=== PATIENT | male | born 1975 | race Caucasian/White ===

== ENCOUNTER 2019-04-16 08:00 | Inpatient (IN) | payer OTHER ==
[2019-04-16 08:55] VITALS: BMI 27.7
[2019-04-16] MEDS ORDERED: MIDAZOLAM HCL 2 MG/2 ML SINGLE DOSE VIAL ONE ×2 (09:25)
[2019-04-16] MEDS ORDERED: PROPOFOL 20 ML ONE ×6 (09:26→11:54)
[2019-04-16] MEDS ORDERED: MORPHINE 5 MG/10 ML AMP - FOR COMPOUNDING USE ONLY ONE (09:44)
[2019-04-16] MEDS ORDERED: fentaNYL CITRATE 250 MCG/5 ML VIAL ONE (09:49)
[2019-04-16] MEDS ORDERED: ROCURONIUM BROMIDE 50 MG/5 ML SYRINGE ONE (09:50)
[2019-04-16] MEDS ORDERED: DEXMEDETOMIDINE HCL 200 MCG/2 ML IVPB ONE (09:56)
[2019-04-16] MEDS ORDERED: BUPIVACAINE LIPOSOME/PF (EXPAREL) 266 MG/20 ML VIAL ONE (10:07)
[2019-04-16] MEDS ORDERED: BUPIVACAINE HCL/PF 0.5% (5 MG/ML) 30 ML VIAL IJ ONE (10:08)
[2019-04-16] MEDS ORDERED: KETAMINE HCL 200 MG/20 ML VIAL ONE (10:18)
[2019-04-16] MEDS ORDERED: ceFAZolin SODIUM 1 GM VIAL IVPB ONE ×2 (10:30→12:35)
[2019-04-16] MEDS ORDERED: TRANEXAMIC ACID 1000 MG/10 ML VIAL ONE (10:59)
[2019-04-16] MEDS ORDERED: GELATIN SPONGE,ABSORBABLE 1 GM PACKET TP ONE (11:21)
[2019-04-16] MEDS ORDERED: BUPIVACAINE LIPOSOME/PF (EXPAREL) 266 MG/20 ML VIAL NR ONE (12:59)
[2019-04-16] MEDS ORDERED: BUPIVACAINE HCL/PF 0.5% (5MG/ML) 10 ML VIAL IJ ONE (12:59)
[2019-04-16] MEDS ORDERED: ONDANSETRON 4 MG/2 ML VIAL ONE (13:17)
[2019-04-16] MEDS ORDERED: DEXAMETHASONE SOD PHOSPHATE 4 MG/1 ML VIAL ONE (13:17)
[2019-04-16] MEDS ORDERED: ceFAZolin SODIUM 1 GM VIAL ONE (13:17)
--- NOTE | 2019-04-16 13:27 | PN ---
Progress Note (short form) - Note Progress Note: 43M s/p L4-S1 posterior instrumented fusion POD #0. -Admit to ICU post-op. -Pain control: NO NSAID's; patient received intra-op TLIP block w/Exparel; OK to use WATCHER LOOKOUT TOWER if needed; transition to oral analgesia post-op. -DVT PPx: -Mechanical only: GLORY's, SCD's. -Chemical: None. -Incentive spirometry q15 min. -NPO until flatus. -Brooks care; d/c when ambulating. -Post-op Ancef x 3 doses. -PT/OT/Rehab, OOB. -WBAT B/L LE. -No bending, lifting (>5 lbs), or twisting for 9-12 months. -Care per ICU & medical hospitalist teams. -f/u pain management rec's: Dr. Vladimir Wright (case discussed). -Discharge planning: f/u 7-10 days after [facility]; call for appointment; . -Will follow. Dhaval Berger MD (Orthopaedic Surgery).
--- NOTE | 2019-04-16 13:32 | OP ---
Operative Note - Note: Operative Date: 04/16/19 Pre-Operative Diagnosis: 1. L4-L5, L5-S1 segmental instability & spondylosis. 2. L5-S1 spondylolisthesis (Grade 1 anterolisthesis). 3. Pseudomeningocele ~L5 Operation: 1. Bilateral laminectomies & facetectomies L4, S1. 2. Revision bilateral laminectomies & facetectomies L5. 3. Posterior instrumentation L4, L5 , S1. 4. Posterolateral arthrodesis L4-S1. 5. Bone autograft. 6. Bone allograft. 7. BMAC. 8. Paraspinal muscle block (exparel - 20mL, marcaine 0.25 % - 20mL). 9. Intrathecal anesthetic/intradural injection - duramorph. 10. Complex wound closure (25cm). Findings: L5 meningocele Implants: Bilateral: Screws L4-S1. Rods L4-S1. 1 x cross-link Post-Operative Diagnosis: Same as Pre-op Surgeon: Dhaval Berger Graphic Design Intern: Johnathon Berrios Anesthesiologist/CONCRETE BUSTER OPERATOR: Elke Tinoco Anesthesia: General, Local Estimated Blood Loss (mls): 190 Drains & Tubes with Location: 1 x superficial HemoVac Fluid Volume Replaced (mls): 1,700 (Crystalloid) Operative Report Dictated: Yes
[2019-04-16] MEDS ORDERED: NALOXONE HCL 0.4 MG/ML VIAL IVPUSH PRN (13:37)
[2019-04-16] MEDS ORDERED: ONDANSETRON 4 MG/2 ML VIAL IVPUSH PRN ×3 (13:37→13:38)
[2019-04-16] MEDS ORDERED: morphine SULFATE/PF 0.5 MG/ML (2cc Syringe - QUVA) IT ONE (13:37)
[2019-04-16] MEDS ORDERED: LACTATED RINGERS SOLUTION 1,000 ML IV SCH (13:45)
--- NOTE | 2019-04-16 14:09 | SURG ---
Surgery Bucket Pusher Note Bucket Pusher: Johnathon Berrios PA-C Date of Service: 04/16/19 Diagnosis: 1. L4-L5, L5-S1 segmental instability & spondylosis. 2. L5-S1 spondylolisthesis (Grade 1 anterolisthesis). 3. Pseudomeningocele ~L5 Procedure: 1. Bilateral laminectomies & facetectomies L4, S1. 2. Revision bilateral laminectomies & facetectomies L5. 3. Posterior instrumentation L4, L5, S1. 4. Posterolateral arthrodesis L4-S1. 5. Bone autograft. 6. Bone allograft. 7. BMAC. 8. Paraspinal muscle block (exparel - 20mL, marcaine 0.25% - 20mL). 9. Intrathecal anesthetic/intradural injection - duramorph. 10. Complex wound closure (25cm). I was present for the entirety of the operative procedure. For further detail, please refer to operative report. Visit type - Case Type Case Type: Scheduled - New patient This patient is new to me today: Yes Date on this admission: 04/16/19
[2019-04-16] MEDS ORDERED: ACETAMINOPHEN 1000 MG/100 ML VIAL (NON FORMULARY) IVPB ONE (14:28)
[2019-04-16] MEDS ORDERED: HYDROmorphone HCl 2 MG/ML VIAL ONE ×2 (14:35→15:01)
[2019-04-16] MEDS ORDERED: HYDROmorphone HCl 2 MG/ML VIAL IVPUSH ONE ×5 (14:36→15:12)
--- NOTE | 2019-04-16 15:10 | OP ---
Date of Operation: 04/16/2019 Pre-Operative Diagnosis: 1. L4-L5, L5-S1 segmental instability & spondylosis 2. L5-S1 Spondylolisthesis (Grade 1 anterolisthesis) 3. Pseudomeningocele L5 4. Chronic low back pain Post-Operative Diagnosis: 1. L4-L5, L5-S1 segmental instability & spondylosis 2. L5-S1 Spondylolisthesis (Grade 1 anterolisthesis) 3. Pseudomeningocele L5 4. Chronic low back pain Procedure Performed: 1. L4, L5, S1 laminectomies and facetectomies. (95490-68, 24407-00 x 2) 2. Posterolateral arthrodesis L4-S1. (76787-34-45, 92779-71-85 x 2) 3. L4-S1 posterior instrumentation. (74443-55-59) 4. Morselized bone autograft. (05304) 5. Morselized bone allograft. (31866) 6. Bone marrow aspiration for bone grafting. (26941) 7. Paraspinal muscle block (exparel - 20mL, marcaine 0.25% - 20mL). (95542) 8. Intrathecal anesthetic/intradural injection - duramorph. (70757) 9. Complex wound closure, 4 layers, 25cm. (30190 x 4) Surgeon: Dhaval Berger M.D. Fabrics And Material Cutter: Johnathon Berrios PA-C. Anesthesiologist: Elke Tinoco M.D. Anesthesia: General, Local. Position: Prone. Incision: Midline. Specimens Removed: None. Drains: 1 x superficial HemoVac. Estimated Blood Loss: 190cc. Intravenous Fluid: 1700cc crystalloid. Transfusions: None. Complications: None. Bacteriology: None. Closure: No. 1 Vicryl, 2-0 Biosyn absorbable sutures. Indications: The patient was indicated for the above listed surgical procedure due to progressive functional decline that limits his mobility and furthermore his ability to attend to his activities of daily living. The patient was identified in the holding area by his armband. A long discussion was held with the patient regarding the risks, benefits, and alternatives of the above-listed procedure. The risks include, but are not limited to: Pain, bleeding, infection, damage to surrounding structures (including nerves, blood vessels, skin, ligaments, tendons, and bone), wound complications, failure of hardware/implants/reduction , need for further surgery, blood clots, myocardial infarction, cerebrovascular injury, pulmonary embolism, anesthesia complications, limp, numbness, paresthesias, loss of function, and . Benefits may include reduction of: back pain, radiculopathy, neurogenic claudication, and improved overall mobility and function. Alternatives include no surgery. All questions were answered. The patient understood and agreed to the procedure. Informed consent was obtained, witnessed, and verified. The patient's lumbar spine was marked. He was then assessed by the anesthesia team and then taken to the operating room. Procedure: The patient was brought into the operating room, where anesthesia was then administered. This included 2g IV Ancef, 1g IV Vancomycin, and 1g IV tranexamic acid (TXA). A time-out was done led by , the attending surgeon. An indwelling Brooks catheter was successfully inserted by the nursing team. The intra-operative neuromonitoring team provided prepositioning baseline motor and sensory readings. The patient was then safely placed in a prone position with all bony prominences well-padded on a [facility] OSI spine table with strict attention paid to maintenance of sagittal vertical alignment. Retroversion of the pelvis was avoided by ensuring that the hips were extended. This also ensured appropriate lumbar lordosis. The arms were placed on well-padded arm boards and maintained with standard forward flexion, abduction, and external rotation of the shoulders , and flexion of the elbows. Special attention was given to the safe positioning of the cervical spine. The patients eyes, breasts, and belly were all free. The table was placed in 6 degrees of reverse Trendelenburg position to avoid ophthalmic vein congestion. Post-positional motor and sensory readings confirmed no change. A C-arm fluoroscopy unit was positioned perpendicularly to the table and maintained at the level of the upper thoracic spine, except when needed. The skin was prepped in standard, sterile fashion using betadine prep & scrub, wiped off with alcohol, and DuraPrep applied. Standard window draping was utilized, and this included draping of the C-arm. Appropriate pre-operative imaging, including lumbar spine x-rays, CT, and MRI, were available throughout the case for intraoperative evaluation. Verification of the intended surgical levels was confirmed with a lateral fluoroscopic x-ray using a Montiel elevator for localization. A time-out was repeated, and the case began. A midline skin incision was performed from the tip of the spinous process of L3 to the tip of the spinous process of S2. Using electrocautery, the dissection was carried down through subcutaneous fat and then through the midline of the lumbodorsal fascia down to the tips of the spinous processes. A subperiosteal dissection was performed using a combination of unipolar electrocautery and Montiel elevation. This was carried down the spinous process, over the laminae, across the facet joints, and out over the tips of the transverse processes from L4 to S1. In this dissection, the capsules of the L3-L4 joints were preserved bilaterally. The L4-L5 and L5- S1 joint capsules were pathologically hypertrophic. They were ablated using electrocautery and resected with rongeurs. The posterolateral dissection was performed with attention to hemostatis by utilizing both unipolar as well as bipolar electrocautery. The posterolateral space was packed with Ray-Deandre sponges. A rongeur was used to grasp the L5 spinous process and demonstrate the last mobile segment. A rongeur was used to grasp the L4 spinous processes and demonstrate the mobility of the L4-L5 segments. The bilateral L4, L5, and S1 laminae were resected utilizing Kerrison rongeur upcuts combined with Leksell rongeurs. This completed the L4-S1 laminectomies. All harvested bone was saved, freed of fibrous tissue, and milled with a bone mill. Next, an osteotome was utilized to longitudinally split the pars interarticularis and the inferior facets of L4, and L5 bilaterally. The osteotomized bone was imploded towards the thecal sac, which was protected with cottonoid patties, and removed with either a Leksell rongeur or a Kerrison ronguer. Upon removal of all osteotomized bone, we gained clear and easy access to the superior facets of L5, and S1, where tight recess stenosis was appreciated. The exiting L4, L5, & S1 nerve roots were identified and protected. The medial edge of the superior facets was resected at each level bilaterally using Kerrison rongeurs. This freed the theca and the exiting nerve roots at each level. The foraminae, bilaterally, at L4-L5, and L5-S1 were inspected utilizing an angled ball-tipped probe and proved to be generously capacious in accommodating the unobstructed exit of the nerve root at that level. The crowding of the convoluted ligamentum flavum and posterior facet joint capsules contributed to the recess stenosis. These structures were excised using Kerrison upcuts, thus fully completing the decompression. All retractors were relaxed and removed. A Jamshidi needle was delivered into the left posterior ileum through the same surgical incision. Via this, 60 mL of bone marrow was aspirated and spun down to isolate a mix of osteoprogenitor and hematopoietic cells. Retractors were inserted once again. At this point, the neuromonitoring revealed no complications. Pedicle screws were then seated bilaterally from L4-S1 utilizing standard anatomical guidelines: IE the intersection of the horizontal axis of the transverse process with the longitudinal axis of the inferior facet at each level. Utilizing lateral fluoroscopic x-ray, a 4.5mm pneumatic drill was passed via the pedicle at each level, into the corresponding vertebral body. Imaging allowed us to ensure that the drill screw was delivered along the undersurface of each endplate. This was the best quality bone fixation at each level. Each pedicle was palpated with a ball tip feeler. No breech of anterior, medial , lateral, caudal or cranial bone bed was noted. Each screw was reevaluated with lateral and anteroposterior fluoroscopy as well as intraoperative neuromonitoring. All intraoperative neuromonitoring readings were at or above the safe passage of 10 mA. The L4 and L5 pedicles were inspected and palpated using an angled ball-tipped probe. There was no evidence of screw breach involving any of the pedicles. Next, two rods were inserted and fixed into the screw heads with the appropriate screw caps. A torque-limiting device completed the fixation of each cap into each screw head. A single crosslink was utilized. The muscle was gently retracted off the intertransverse plane. All packing sponges were removed. Milled/morselized autologous bone, with morselized allograft bone expansion, was combined with the bone marrow aspiration and used for the posterolateral arthrodesis along the intertransverse plane from L4 to S1. The recipient bone bed was denuded of all soft tissue. No burring was necessary due to healthy bleeding of each bony surface, including the posterior surface of the transverse processes and the lateral surface of the pars interarticularis at each level. This completed the posterolateral arthrodesis. Throughout the case, the wound was irrigated with normal saline solution to keep the exposed soft tissues hydrated. The retractors were released every 15 to 20 minutes to enable adequate blood flow to the paraspinal muscles. These muscles were gently massaged upon release of the retractors to further facilitate blood flow. At the end of the procedure, fragmented and compromised paraspinal muscle was superficially debrided. The dura was inspected and was completely intact. Closure: The paraspinal muscles and lumbodorsal fascia overlying the paraspinal musculature was closed in the midline using #1 Vicryl sutures in simple interrupted fashion. Due to excellent hemostasis, no drain was utilized. The wound was repeatedly thoroughly irrigated with normal saline solution. The subcutaneous tissues were closed using #1 Vicryl sutures. The skin was closed using a running 2-0 Biosyn absorbable suture. This completed a complex, 4-layered wound closure of approximately 25cm. The skin was then painted with benzoin and Steri-Strips were applied perpendicular to the incision. A Primapore adhesive Telfa island dressing was applied over the Steri-Strips and a sterile, compressive dressing was applied using 4x4 gauze pads. The skin was painted with DuraPrep. The wound was then sealed with adhesive Ioban. Final AP & lateral fluoroscopic analysis revealed L4-S1 instrumentation that was intact & in place. There was no fluoroscopic evidence of retained sponges or needles. The sponge and needle counts were correct at the end of the case and I, the attending surgeon, was present and scrubbed throughout the case. The patient was transferred to a hospital bed. All neural monitoring leads were removed. The patient was then transferred to the recovery room in stable condition, as per the anesthesia team, having tolerated the procedure well. Overall comment: Operation went extremely well with no complications. All appropriate goals were achieved in the execution of this operative event. MD JAIME Resendez/[id number] MTDD
[2019-04-16] MEDS ORDERED: diazePAM 5 MG TABLET ONE (15:38)
[2019-04-16] MEDS ORDERED: diazePAM 5 MG TABLET PO ONE ×2 (15:40→19:12)
[2019-04-16] MEDS ORDERED: HYDROmorphone *PCA* 10MG/50ML DISP.SYRIN PCA SCH (16:00)
[2019-04-16] MEDS ORDERED: HYDROmorphone HCL CARPU-JECT 2 MG/1 ML DISP.SYRIN IVPUSH PRN (19:13)
[2019-04-16] MEDS ORDERED: oxyCODONE HCL 5 MG TABLET ONE (19:36)
[2019-04-16] MEDS ORDERED: oxyCODONE HCL 5 MG TABLET PO ONE (19:40)
[2019-04-16] MEDS: LACTATED RINGERS SOLUTION 1,000 ML IV SCH (20:30)
[2019-04-16] MEDS ORDERED: ALPRAZolam 1 MG TABLET PO PRN (22:00)
[2019-04-16] MEDS: GABAPENTIN 300 MG CAPSULE (FP) PO SCH (22:21)
--- NOTE | 2019-04-16 22:28 | CONSULT ---
Consultation: REQUESTING PROVIDER: CONSULT REQUEST: We have been asked to medically evaluate this patient for ICU monitoring post operatively. HISTORY OF PRESENT ILLNESS: 43 y/o/m with PMHx of arachnoiditis, asthma, ADD, Bipolar disorder here s/p L4- S1 posterior instrumented fusion POD #0. 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 He is able to walk a few blocks if he has taken his pain medication but then starts to have pain again. His pain is better when he is lying down and worse when sitting. The pain is worse in his right leg compared to his left leg. Post-op, patient states his pain is reasonably well controlled. His back is uncomfortable due to the surgery but states he will let the nurse know if he needs more pain medications. He denies any headache, chest pain, SOB, abd pain, N/V/D, fever, chills. Procedures performed today: 1. Bilateral laminectomies & facetectomies L4, S1. 2. Revision bilateral laminectomies & facetectomies L5. 3. Posterior instrumentation L4, L5, S1. 4. Posterolateral arthrodesis L4-S1. 5. Bone autograft. 6. Bone allograft. 7. BMAC. 8. Paraspinal muscle block (exparel - 20mL, marcaine 0.25% - 20mL). 9. Intrathecal anesthetic/intradural injection - duramorph. 10. Complex wound closure (25cm). REVIEW OF SYSTEMS: As per HPI PHYSICAL EXAMINATION Vital Signs - 24 hr 04/16/19 04/16/19 04/16/19 08:48 13:52 14:00 Temperature 84 F L 98.1 F Pulse Rate 84 86 90 Respiratory 20 12 13 Rate Blood Pressure 136/83 126/66 136/77 O2 Sat by Pulse 98 94 L Oximetry (%) 04/16/19 04/16/19 04/16/19 14:15 14:30 14:45 Temperature Pulse Rate 92 H 87 79 Respiratory 25 H 18 25 H Rate Blood Pressure 126/67 132/73 128/68 O2 Sat by Pulse 98 100 100 Oximetry (%) 04/16/19 04/16/19 04/16/19 15:00 15:15 15:30 Temperature Pulse Rate 75 73 79 Respiratory 19 15 12 Rate Blood Pressure 111/61 115/67 118/59 L O2 Sat by Pulse 100 99 92 L Oximetry (%) 04/16/19 04/16/19 04/16/19 15:45 16:00 16:15 Temperature Pulse Rate 82 78 81 Respiratory 20 12 12 Rate Blood Pressure 111/63 118/81 113/64 O2 Sat by Pulse 94 L 95 94 L Oximetry (%) 04/16/19 04/16/19 04/16/19 16:30 16:45 17:00 Temperature Pulse Rate 83 75 77 Respiratory 12 10 10 Rate Blood Pressure 124/69 126/66 122/62 O2 Sat by Pulse 93 L 96 97 Oximetry (%) 04/16/19 04/16/19 04/16/19 17:15 17:30 17:45 Temperature Pulse Rate 81 82 72 Respiratory 13 12 10 Rate Blood Pressure 116/63 133/67 129/76 O2 Sat by Pulse 100 98 98 Oximetry (%) 04/16/19 04/16/19 04/16/19 18:00 18:15 18:30 Temperature 98.7 F Pulse Rate 80 85 73 Respiratory 11 16 10 Rate Blood Pressure 121/73 111/56 L 116/66 O2 Sat by Pulse 100 100 98 Oximetry (%) 04/16/19 04/16/19 04/16/19 18:45 19:00 19:15 Temperature Pulse Rate 77 78 78 Respiratory 12 10 16 Rate Blood Pressure 116/71 123/69 123/63 O2 Sat by Pulse 99 99 98 Oximetry (%) 04/16/19 04/16/19 04/16/19 19:30 19:45 20:00 Temperature Pulse Rate 79 77 75 Respiratory 10 10 10 Rate Blood Pressure 131/75 133/69 135/66 O2 Sat by Pulse 99 99 98 Oximetry (%) 04/16/19 04/16/19 04/16/19 20:15 20:30 21:00 Temperature 99.0 F 96.3 F L Pulse Rate 80 73 79 Respiratory 11 10 14 Rate Blood Pressure 127/67 131/67 133/76 O2 Sat by Pulse 99 99 99 Oximetry (%) GENERAL: Awake, alert, and fully oriented, in no acute distress. HEAD: Normal with no signs of trauma. EYES: PERRL, EOMI, no scleral icterus EARS, NOSE, THROAT: moist mucous membranes NECK: trachea midline, supple LUNGS: Breath sounds equal, clear to auscultation bilaterally. No wheezes, and no crackles. No accessory muscle use. HEART: Regular rate and rhythm, normal S1 and S2 without murmur, rub or gallop. ABDOMEN: Soft, nontender, not distended, normoactive bowel sounds, no guarding, no rebound, no masses EXTREMITIES: 2+ pulses, warm, well-perfused. No calf tenderness. No peripheral edema. NEUROLOGICAL: Cranial nerves II-XII intact. Normal speech. Normal sensation throughout. 5/5 strength on pedal flexion, extension. Laboratory Results - last 24 hr 04/16/19 04/16/19 08:12 08:53 Blood Type O POSITIVE O POSITIVE Antibody Screen Negative Active Medications Generic Name Dose Route Start Last Admin Trade Name Freq PRN Reason Stop Dose Admin Acetaminophen 1,000 mg 04/16/19 18:00 Ofirmev Injection - IVPB 04/19/19 17:59 Q8H MAXIMO Acetaminophen 650 mg 04/20/19 02:00 Tylenol - PO Q6H MAXIMO Alprazolam 1 mg 04/16/19 13:45 Xanax PO PRN MAXIMO Diphenhydramine HCl 25 mg 04/16/19 13:37 Benadryl Injection - IVPUSH ONCE PRN FOR ITCHING Fentanyl 50 mcg 04/16/19 13:37 Sublimaze Injection - IVPUSH 04/17/19 01:00 [id number] PRN PAIN-PACU ORDER X 4 DOSES ONLY Gabapentin 300 mg 04/16/19 14:00 Neurontin - PO QID [facility] Hydromorphone HCl 10 mg 04/16/19 16:00 Hydromorphone 10 Mg/50 Ml-Ns SUPERVISOR PLASTIC SHEETS 04/23/19 15:48 SUPERVISOR PLASTIC SHEETS [facility] Protocol Lactated Ringer's 1,000 mls @ 125 mls/hr 04/16/19 13:45 Lactated Ringers Solution IV ASDIR [facility] Lamotrigine 800 mg 04/17/19 10:00 Lamictal - PO DAILY [facility] Naloxone HCl 0.4 mg 04/16/19 13:37 Narcan - IVPUSH ONCE PRN Sedation Non-Formulary Medication 40 mg 04/17/19 10:00 Dextroamphetamine/Amphetamine [Adderall 10 Mg Tablet] PO DAILY [facility] Non-Formulary Medication 70 mg 04/17/19 10:00 Lisdexamfetamine Dimesylate [Vyvanse] PO DAILY [facility] Ondansetron HCl 4 mg 04/16/19 13:37 Zofran Injection IVPUSH Q6H PRN NAUSEA AND/OR VOMITING Ondansetron HCl 4 mg 04/16/19 13:38 Zofran Injection IVPUSH Q6H PRN NAUSEA AND/OR VOMITING Oxycodone HCl 10 mg 04/16/19 13:45 Oxycontin - PO PRN MAXIMO Oxycodone HCl 40 mg 04/16/19 13:37 Roxicodone - PO Q3H PRN PAIN LEVEL 6-10 ASSESSMENT/PLAN: 43 y/o/m with PMHx of arachnoiditis, asthma, ADD, Bipolar disorder here s/p L4- S1 posterior instrumented fusion POD #0. #Neuro - AAOx3 - Pain control: NO NSAID's; patient received intra-op TLIP block w/Exparel; OK to use SUPERVISOR PLASTIC SHEETS if needed; transition to oral analgesia post-op. - WBAT B/L LE. - No bending, lifting (>5 lbs), or twisting for 9-12 months. - f/u pain management rec's: Dr. Vladimir Wright (case discussed). - Continue home medications as per surgery - Patient started on 800mg of Lamictal. Adjusted dose to 400mg as patient only takes 400mg at home as confirmed by patient and patient's pharmacy. - PT/OT/Rehab, OOB. #Cardio - Monitor for signs of bradycardia, tachycadia - no active issues #Pulm - maintain O2 saturation >90% - encourage incentive spirometry [id number] #GI - NPO until flatus - Bowel sounds auscultated on exam #ID - Post-op Ancef x3 doses #Prophylaxis - Mechanical only: GLORY's, SCD's. - Chemical: None. #FEN - LR @125mls hr - monitor and replete lytes as needed #Disposition - ICU monitoring - Discharge planning: f/u 7-10 days after rehab discharge at [facility] office; call for appointment; . Visit type - Emergency Visit Emergency Visit: No - New Patient This patient is new to me today: Yes Date on this admission: 04/17/19 - Critical Care Critical Care patient: Yes Total Critical Care Time (in minutes): 36 Critical Care Statement: The care of this patient involved high complexity decision making to prevent further life threatening deterioration of the patient 's condition and/or to evaluate & treat vital organ system(s) failure or risk of failure. ATTENDING PHYSICIAN STATEMENT I saw and evaluated the patient. I reviewed the resident's note and discussed the case with the resident. I agree with the resident's findings and plan as documented. SUBJECTIVE: OBJECTIVE: ASSESSMENT AND PLAN:
[2019-04-17] MEDS: oxyCODONE HCL 5 MG TABLET PO PRN ×8 (01:50→23:55)
[2019-04-17] MEDS: ACETAMINOPHEN 1000 MG/100 ML VIAL (NON FORMULARY) IVPB SCH ×4 (02:00→16:59)
[2019-04-17] MEDS: LACTATED RINGERS SOLUTION 1,000 ML IV SCH ×2 (04:23→14:31)
[2019-04-17] MEDS: GABAPENTIN 300 MG CAPSULE (FP) PO SCH ×5 (04:24→21:26)
[2019-04-17 07:00] LABS: HEMATOCRIT 37.2 % (35.4-49); HEMOGLOBIN 12.9 GM/dL (11.7-16.9); MCHC 34.8 g/dl (32.0-35.9); MEAN CELL VOLUME 86.1 fl (80-96); MEAN PLT VOLUME 9.3 fl (7.5-11.1); PLATELET COUNT 251 K/MM3 (134-434); RBC 4.32 M/mm3 (4.00-5.60); RDW 13.3 % (11.9-15.9); WHITE BLOOD COUNT 11.7 K/mm3 (4.0-10.0)
[2019-04-17 07:48] LABS: BLOOD UREA NITROGEN 15.6 mg/dL (7-18); CALCIUM 8.8 mg/dL (8.5-10.1); CREATININE 0.8 mg/dL (0.55-1.3); POTASSIUM 4.2 mmol/L (3.5-5.1)
--- NOTE | 2019-04-17 08:09 | HP ---
Pre-Op diagnosis: 1. L4-L5, L5-S1 segmental instability & spondylosis. 2. L5-S1 spondylolisthesis (Grade 1 anterolisthesis). 3. Pseudomeningocele ~L5 HISTORY OF PRESENT ILLNESS: Pt is a 43 y/o/m with PMHx of arachnoiditis, asthma, ADD, Bipolar disorder who is s/p L4-S1 posterior instrumented fusion POD #1. Pt endorses having undergone previous back surgery in 2005 where a schwannoma tumor was removed from his spinal cord at the L4-L5 level. Pt states he developed arachnoiditis after this surgery. Pt currently endorses severe back pain. Pain is less severe when patient is lying down and is exacerbated when his is in a siting position. Denies headache, nausea/vomiting, fever, chills, urinary or bowel changes, chest pain, or shortness of breath PAST MEDICAL HISTORY As above PAST SURGICAL HISTORY: Schwanomma removal 2006 spinal cord SocialHx- Remote history of Tobacco and alcohol use. Allergies adhesive tape Allergy (Severe, Verified 04/16/19 08:57) pollen extracts Allergy (Verified 04/16/19 08:57) HOME MEDICATIONS: Home Medications Medication Instructions Recorded Alprazolam [Xanax] 1 mg PO PRN 04/16/19 Cyclobenzaprine HCl [Flexeril -] 10 mg PO DAILY 04/16/19 Dextroamphetamine/Amphetamine 40 mg PO DAILY 04/16/19 [Adderall 10 mg Tablet] Diazepam [Valium] 10 mg PO DAILY 04/16/19 Gabapentin [Neurontin] 300 mg PO QID 04/16/19 Lamotrigine [Lamictal -] 800 mg PO DAILY 04/16/19 Lisdexamfetamine Dimesylate 70 mg PO DAILY 04/16/19 [Vyvanse] Oxycodone HCl [Oxycontin] 10 mg PO PRN 04/16/19 Tadalafil [Cialis] 5 mg PO PRN 04/16/19 REVIEW OF SYSTEMS CONSTITUTIONAL: Absent: fever, chills, diaphoresis, generalized weakness, malaise, loss of appetite, weight change HEENT: Absent: rhinorrhea, nasal congestion, throat pain, throat swelling, difficulty swallowing, mouth swelling, ear pain, eye pain, visual changes CARDIOVASCULAR: Absent: chest pain, syncope, palpitations, irregular heart rate, lightheadedness , peripheral edema RESPIRATORY: Absent: cough, shortness of breath, dyspnea with exertion, orthopnea, wheezing, stridor, hemoptysis GASTROINTESTINAL: Absent: abdominal pain, abdominal distension, nausea, vomiting, diarrhea, constipation, melena, hematochezia GENITOURINARY: Absent: dysuria, frequency, urgency, hesitancy, hematuria, flank pain, genital pain MUSCULOSKELETAL: Absent: myalgia, arthralgia, joint swelling, back pain, neck pain SKIN: Absent: rash, itching, pallor HEMATOLOGIC/IMMUNOLOGIC: Absent: easy bleeding, easy bruising, lymphadenopathy, frequent infections ENDOCRINE: Absent: unexplained weight gain, unexplained weight loss, heat intolerance, cold intolerance NEUROLOGIC: present paresthesias right lower extremities PSYCHIATRIC: Absent: anxiety, depression, suicidal or homicidal ideation, hallucinations. PHYSICAL EXAMINATION Vital Signs - 24 hr 04/16/19 04/16/19 04/16/19 08:48 13:52 14:00 Temperature 84 F L 98.1 F Pulse Rate 84 86 90 Respiratory 20 12 13 Rate Blood Pressure 136/83 126/66 136/77 O2 Sat by Pulse 98 94 L Oximetry (%) 04/16/19 04/16/19 04/16/19 14:15 14:30 14:45 Temperature Pulse Rate 92 H 87 79 Respiratory 25 H 18 25 H Rate Blood Pressure 126/67 132/73 128/68 O2 Sat by Pulse 98 100 100 Oximetry (%) 04/16/19 04/16/19 04/16/19 15:00 15:15 15:30 Temperature Pulse Rate 75 73 79 Respiratory 19 15 12 Rate Blood Pressure 111/61 115/67 118/59 L O2 Sat by Pulse 100 99 92 L Oximetry (%) 04/16/19 04/16/19 04/16/19 15:45 16:00 16:15 Temperature Pulse Rate 82 78 81 Respiratory 20 12 12 Rate Blood Pressure 111/63 118/81 113/64 O2 Sat by Pulse 94 L 95 94 L Oximetry (%) 04/16/19 04/16/19 04/16/19 16:30 16:45 17:00 Temperature Pulse Rate 83 75 77 Respiratory 12 10 10 Rate Blood Pressure 124/69 126/66 122/62 O2 Sat by Pulse 93 L 96 97 Oximetry (%) 04/16/19 04/16/19 04/16/19 17:15 17:30 17:45 Temperature Pulse Rate 81 82 72 Respiratory 13 12 10 Rate Blood Pressure 116/63 133/67 129/76 O2 Sat by Pulse 100 98 98 Oximetry (%) 04/16/19 04/16/19 04/16/19 18:00 18:15 18:30 Temperature 98.7 F Pulse Rate 80 85 73 Respiratory 11 16 10 Rate Blood Pressure 121/73 111/56 L 116/66 O2 Sat by Pulse 100 100 98 Oximetry (%) 04/16/19 04/16/19 04/16/19 18:45 19:00 19:15 Temperature Pulse Rate 77 78 78 Respiratory 12 10 16 Rate Blood Pressure 116/71 123/69 123/63 O2 Sat by Pulse 99 99 98 Oximetry (%) 04/16/19 04/16/19 04/16/19 19:30 19:45 20:00 Temperature Pulse Rate 79 77 75 Respiratory 10 10 10 Rate Blood Pressure 131/75 133/69 135/66 O2 Sat by Pulse 99 99 98 Oximetry (%) 04/16/19 04/16/19 04/16/19 20:15 20:30 21:00 Temperature 99.0 F Pulse Rate 80 73 Respiratory 11 10 Rate Blood Pressure 127/67 131/67 O2 Sat by Pulse 99 99 99 Oximetry (%) 04/16/19 04/16/19 04/16/19 21:30 22:00 23:00 Temperature 96.3 F L Pulse Rate 79 71 83 Respiratory 14 9 L 10 Rate Blood Pressure 133/76 118/81 120/64 O2 Sat by Pulse Oximetry (%) 04/17/19 04/17/19 04/17/19 01:00 02:00 03:00 Temperature Pulse Rate 80 72 73 Respiratory 14 14 10 Rate Blood Pressure 113/60 121/102 H 117/74 O2 Sat by Pulse Oximetry (%) 04/17/19 04/17/19 04/17/19 04:00 05:00 06:00 Temperature 98.0 F Pulse Rate 86 82 79 Respiratory 12 10 15 Rate Blood Pressure 115/71 123/75 101/60 O2 Sat by Pulse Oximetry (%) GENERAL: Mild distress HEAD: Normal with no signs of trauma. EYES: EOMI Sclera Clear EARS, NOSE, THROAT: MMM LUNGS: Clear to auscultation anteriorly HEART: RRR S1S2 ABDOMEN: Soft, NDNT BACK: HemoVac Drain in back, Serosanguinous fluid draining. UPPER EXTREMITIES: Strength 5/5 biceps and triceps. Hand identity management consultant 5/5 both hands. LOWER EXTREMITIES: Strength 4/5 bilaterally. SILT. NEUROLOGICAL: Cranial nerves II-XII intact. Normal speech. PSYCHIATRIC: Cooperative. Good eye contact. Appropriate mood and affect. SKIN: Warm, dry, normal turgor, no rashes or lesions noted, normal capillary refill. Laboratory Results - last 24 hr 04/16/19 04/16/19 04/17/19 08:12 08:53 05:35 WBC 11.7 H RBC 4.32 Hgb 12.9 Hct 37.2 MCV 86.1 MCH 30.0 MCHC 34.8 RDW 13.3 Plt Count 251 MPV 9.3 Sodium Potassium Chloride Carbon Dioxide Anion Gap BUN Creatinine Est GFR (CKD-EPI)AfAm Est GFR (CKD-EPI)NonAf Random Glucose Calcium Blood Type O POSITIVE O POSITIVE Antibody Screen Negative 04/17/19 05:35 WBC RBC Hgb Hct MCV MCH MCHC RDW Plt Count MPV Sodium 139 Potassium 4.2 Chloride 106 Carbon Dioxide 30 Anion Gap 3 L BUN 15.6 Creatinine 0.8 Est GFR (CKD-EPI)AfAm 127.70 Est GFR (CKD-EPI)NonAf 110.18 Random Glucose 93 Calcium 8.8 Blood Type Antibody Screen ASSESSMENT/PLAN: Pt is a 43 y/o/m with PMHx of arachnoiditis, asthma, ADD, Bipolar disorder who is s/p L4-S1 posterior instrumented fusion POD #1 S/P 1. Bilateral laminectomies & facetectomies L4, S1. 2. Revision bilateral laminectomies & facetectomies L5. 3. Posterior instrumentation L4, L5, S1. 4. Posterolateral arthrodesis L4-S1. 5. Bone autograft. 6. Bone allograft. 7. BMAC. 8. Paraspinal muscle block (exparel - 20mL, marcaine 0.25% - 20mL). 9. Intrathecal anesthetic/intradural injection - duramorph. 10. Complex wound closure (25cm). # s/p L4-S1 posterior instrumented fusion POD #1 - Pain control: NO NSAID's; patient received intra-op TLIP block w/Exparel -Oxycodone 10 mg PRN with pain scales. Ofirmev 1000 mg Q8H PRN - No bending, lifting (>5 lbs), or twisting for 9-12 months. - f/u pain management rec's: Dr. Vladimir Wright - Continue home medications as per surgery - PT/OT/Rehab, OOB. -Incentive [place] -D/C no when ambulating -Ancef x 3 doses finished #Bipolar Disorder -Resume Lamictal 400 Daily #FEN -LR @125mls hr -Monitor and replete lytes as needed -NPO until flatus #DVT ppx: -SCDs #Dispo - ICU monitoring Visit type - Emergency Visit Emergency Visit: No - New Patient This patient is new to me today: Yes Date on this admission: 04/17/19 - Critical Care Critical Care patient: Yes Total Critical Care Time (in minutes): 35 Critical Care Statement: The care of this patient involved high complexity decision making to prevent further life threatening deterioration of the patient 's condition and/or to evaluate & treat vital organ system(s) failure or risk of failure. ATTENDING PHYSICIAN STATEMENT I saw and evaluated the patient. I reviewed the resident's note and discussed the case with the resident. I agree with the resident's findings and plan as documented. SUBJECTIVE: OBJECTIVE: ASSESSMENT AND PLAN:
[2019-04-17] MEDS ORDERED: PT OWN MED DRAWER 7, Y5N ONE ×2 (08:51→09:48)
[2019-04-17] MEDS ORDERED: PATIENT'S OWN MEDICATION (NON-FORMULARY) (Dextroamphetamine/Amphetamine [Adderall 10 Mg Ta PO SCH (10:00)
[2019-04-17] MEDS ORDERED: LISDEXAMFETAMINE DIMESYLATE 70 MG PO SCH (10:00)
[2019-04-17] MEDS ORDERED: lamoTRIgine 100 MG TABLET (FP) PO SCH ×2 (10:00)
--- NOTE | 2019-04-17 10:55 | PN ---
Progress Note (short form) - Note Progress Note: Anesthesia Post Op Note Pt seen s/p GA for multi level lumbar lami Pt awake alert NAD denies n/v, puritis, no complaints using po pain med regimen VSS no apparent anesthesia complications Darcy Murillo.
--- NOTE | 2019-04-17 11:21 | PN ---
Physical Exam: SUBJECTIVE: Patient seen and examined on morning rounds. Pain well controlled overnight, worsened this AM, 40mg oxy to good effect. Patient denies nausea / vomiting. No flatus yet, endorses hunger. Brooks in place draining clear yellow urine. Patient requesting his 400 lamictal and vivace 70mg. Snoring with desaturation to 89% immediately prior to interview - suggestive of CECILIA. OBJECTIVE: Vital Signs Period Temp Pulse Resp BP Sys/Andrews Pulse Ox Last 24 Hr 96.3 F-99.0 F 71-92 9-25 101-136/56-102 92-100 GENERAL: The patient is awake, alert, and fully oriented, in no acute distress, laying flat in hospital bed. HEAD: Normal with no signs of trauma. EYES: PERRL, extraocular movements intact, sclera anicteric, conjunctiva clear. No ptosis. ENT: Ears normal, nares patent, oropharynx clear without exudates, moist mucous membranes. NECK: Trachea midline, full range of motion, supple. LUNGS: Breath sounds equal, clear to auscultation bilaterally, no wheezes, no crackles, no accessory muscle use. HEART: Regular rate and rhythm, S1, S2 without murmur, rub or gallop. ABDOMEN: Soft, nontender, nondistended, normoactive bowel sounds, no guarding, no rebound, no hepatosplenomegaly, no masses. EXTREMITIES: 2+ pulses, warm, well-perfused, no edema. NEUROLOGICAL: Cranial nerves II through XII grossly intact. Normal speech, gait not observed. PSYCH: Normal mood, normal affect. SKIN: Warm, dry, normal turgor, no rashes or lesions noted Laboratory Results - last 24 hr 04/17/19 04/17/19 05:35 05:35 WBC 11.7 H RBC 4.32 Hgb 12.9 Hct 37.2 MCV 86.1 MCH 30.0 MCHC 34.8 RDW 13.3 Plt Count 251 MPV 9.3 Sodium 139 Potassium 4.2 Chloride 106 Carbon Dioxide 30 Anion Gap 3 L BUN 15.6 Creatinine 0.8 Est GFR (CKD-EPI)AfAm 127.70 Est GFR (CKD-EPI)NonAf 110.18 Random Glucose 93 Calcium 8.8 Active Medications Generic Name Dose Route Start Last Admin Trade Name Freq PRN Reason Stop Dose Admin Acetaminophen 1,000 mg 04/16/19 18:00 04/17/19 09:04 Ofirmev Injection - IVPB 04/19/19 17:59 1,000 mg Q8H MAXIMO Administration Acetaminophen 650 mg 04/20/19 02:00 Tylenol - PO Q6H MAXIMO Alprazolam 1 mg 04/16/19 22:00 Xanax PO HS PRN INSOMNIA Diphenhydramine HCl 25 mg 04/16/19 13:37 Benadryl Injection - IVPUSH ONCE PRN FOR ITCHING Gabapentin 300 mg 04/16/19 14:00 04/17/19 09:04 Neurontin - PO 300 mg QID MAXIMO Administration Lactated Ringer's 1,000 mls @ 125 mls/hr 04/16/19 13:45 04/17/19 04:23 Lactated Ringers Solution IV Not Given ASDIR MAXIMO Lamotrigine 400 mg 04/17/19 10:00 04/17/19 09:54 Lamictal - PO 400 mg DAILY [facility] Administration Naloxone HCl 0.4 mg 04/16/19 13:37 Narcan - IVPUSH ONCE PRN Sedation Non-Formulary Medication 40 mg 04/17/19 10:00 Dextroamphetamine/Amphetamine [Adderall 10 Mg Tablet] PO DAILY [facility] Non-Formulary Medication 70 mg 04/17/19 10:00 Lisdexamfetamine Dimesylate [Vyvanse] PO DAILY [facility] Ondansetron HCl 4 mg 04/16/19 13:37 Zofran Injection IVPUSH Q6H PRN NAUSEA AND/OR VOMITING Ondansetron HCl 4 mg 04/16/19 13:38 Zofran Injection IVPUSH Q6H PRN NAUSEA AND/OR VOMITING Oxycodone HCl 10 mg 04/16/19 22:30 Roxicodone - PO Q4H PRN PAIN LEVEL 1-5 Oxycodone HCl 40 mg 04/16/19 13:37 04/17/19 08:16 Roxicodone - PO 40 mg Q3H PRN Administration PAIN LEVEL 6-10 ASSESSMENT/PLAN: 43 y/o/m with PMHx of arachnoiditis, asthma, ADD, Bipolar disorder here s/p L4- S1 posterior instrumented fusion POD #1. Progressing appropriately postop. #Neuro - AAOx3 - Pain control: NO NSAID's; patient received intra-op TLIP block w/Exparel; OK to use WEATHER ANCHOR if needed; transition to oral analgesia post-op. - WBAT B/L LE. - No bending, lifting (>5 lbs), or twisting for 9-12 months. - f/u pain management rec's: Dr. Vladimir Wright (case discussed). - Continue home medications as per surgery - Patient continued on 400mg lamictal - Patient on home Vyvance 70mg, not available on formulary, controlled substance , since in pill pack and not original bottle, unable to verify through pharmacy - PT/OT/Rehab, OOB. #Cardio - Monitor for signs of bradycardia, tachycadia - No active issues #Pulm - Maintain O2 saturation >90% - Encourage incentive spectrometry [id number] #GI - NPO until flatus - Bowel sounds auscultated on exam #ID - Post-op Ancef x3 doses #Prophylaxis - Mechanical only: GLORY's, SCD's. - Chemical: None. - PT - OOB #FEN - LR @125mls hr - Monitor and replete lytes as needed #Disposition - ICU monitoring, disposition per surgery team, spoke with Dr. Berger - patient stable, agrees to transfer to floor - Discharge planning: f/u 7-10 days after rehab discharge at [facility] office; call for appointment; . Visit type - Emergency Visit Emergency Visit: Yes ED Registration Date: 04/16/19 Care time: The patient presented to the Emergency Department on the above date and was hospitalized for further evaluation of their emergent condition. - New Patient This patient is new to me today: Yes Date on this admission: 04/17/19 - Critical Care Critical Care patient: Yes Total Critical Care Time (in minutes): 36 Critical Care Statement: The care of this patient involved high complexity decision making to prevent further life threatening deterioration of the patient 's condition and/or to evaluate & treat vital organ system(s) failure or risk of failure. ATTENDING PHYSICIAN STATEMENT I saw and evaluated the patient. I reviewed the resident's note and discussed the case with the resident. I agree with the resident's findings and plan as documented. SUBJECTIVE: OBJECTIVE: ASSESSMENT AND PLAN:
--- NOTE | 2019-04-17 11:29 | PN ---
Teaching Attending Note Name of Resident: Destin Childers ATTENDING PHYSICIAN STATEMENT I saw and evaluated the patient. I reviewed the resident's note and discussed the case with the resident. I agree with the resident's findings and plan as documented. SUBJECTIVE: Pt seen and examined in the ICU. Pain relatively controlled. No nausea. No flatus. OBJECTIVE: Vital Signs Period Temp Pulse Resp BP Sys/Andrews Pulse Ox Last 24 Hr 96.3 F-99.0 F 71-92 9-25 101-136/56-102 92-100 Intake & Output 04/14/19 04/15/19 04/16/19 04/17/19 23:59 23:59 23:59 23:59 Intake Total 3200 1160 Output Total 2170 2120 Balance 1030 -960 Weight 87.09 kg 89.3 kg Gen: NAD at rest Heart: RRR Lung: decreased breath sounds at the bases Abd: soft, nontender Ext: no edema CBC, BMP 04/17/19 05:35 04/17/19 05:35 Active Medications Acetaminophen (Ofirmev Injection -) 1,000 mg IVPB Q8H [facility] Stop: 04/19/19 17:59 Last Admin: 04/17/19 09:04 Dose: 1,000 mg Acetaminophen (Tylenol -) 650 mg PO Q6H [facility] Alprazolam (Xanax) 1 mg PO HS PRN PRN Reason: INSOMNIA Diphenhydramine HCl (Benadryl Injection -) 25 mg IVPUSH ONCE PRN PRN Reason: FOR ITCHING Gabapentin (Neurontin -) 300 mg PO QID [facility] Last Admin: 04/17/19 09:04 Dose: 300 mg Lactated Ringer's (Lactated Ringers Solution) 1,000 mls @ 125 mls/hr IV ASDIR [facility] Last Admin: 04/17/19 04:23 Dose: Not Given Lamotrigine (Lamictal -) 400 mg PO DAILY [facility] Last Admin: 04/17/19 09:54 Dose: 400 mg Naloxone HCl (Narcan -) 0.4 mg IVPUSH ONCE PRN PRN Reason: Sedation Non-Formulary Medication (Dextroamphetamine/Amphetamine [Adderall 10 Mg Tablet] ) 40 mg PO DAILY [facility] Non-Formulary Medication (Lisdexamfetamine Dimesylate [Vyvanse]) 70 mg PO DAILY [facility] Ondansetron HCl (Zofran Injection) 4 mg IVPUSH Q6H PRN PRN Reason: NAUSEA AND/OR VOMITING Ondansetron HCl (Zofran Injection) 4 mg IVPUSH Q6H PRN PRN Reason: NAUSEA AND/OR VOMITING Oxycodone HCl (Roxicodone -) 10 mg PO Q4H PRN PRN Reason: PAIN LEVEL 1-5 Oxycodone HCl (Roxicodone -) 40 mg PO Q3H PRN PRN Reason: PAIN LEVEL 6-10 Last Admin: 04/17/19 08:16 Dose: 40 mg ASSESSMENT AND PLAN: L4-L5, L5-S1 segmental instability & spondylosis/L5-S1 spondylolisthesis/ Pseudomeningocele ~L5 s/p Bilateral laminectomies & facetectomies L4, S1/Revision bilateral laminectomies & facetectomies L5/Posterior instrumentation L4, L5, S1 Asthma Bipolar Disorder ADD - pain control - incentive spirometry - IVF - PO when flatus - d/c no when OOB - rehab/PT - DVT prophylaxis - disposition per surgery
--- NOTE | 2019-04-17 12:52 | PN ---
Teaching Attending Note Name of Resident: Sha Beebe ATTENDING PHYSICIAN STATEMENT I saw and evaluated the patient. I reviewed the resident's note and discussed the case with the resident. I agree with the resident's findings and plan as documented. SUBJECTIVE: Pt is a 43yo male with PMHx of asthma, ADD, Bipolar disorder who is s/p L4-S1 posterior instrumented fusion POD #1. Pt endorses having undergone previous back surgery in 2005 where a schwannoma tumor was removed from his spinal cord at the L4-L5 level. Patient is c/o having severe back pain. POD #1 OBJECTIVE: Vital Signs Temperature 98.0 F 04/17/19 05:00 Pulse Rate 81 04/17/19 12:00 Respiratory Rate 16 04/17/19 12:00 Blood Pressure 97/65 04/17/19 12:00 O2 Sat by Pulse Oximetry (%) 99 04/17/19 09:00 GENERAL: The patient is awake, alert, and fully oriented, in no acute distress. HEAD: Normal with no signs of trauma. EYES: PERRL, extraocular movements intact, sclera anicteric, conjunctiva clear. ENT: Ears normal, oropharynx clear without exudates, moist mucous membranes. NECK: Trachea midline, full range of motion, supple. LUNGS: Breath sounds equal, clear to auscultation bilaterally, no wheezes, no crackles, no accessory muscle use. HEART: Regular rate and rhythm, S1, S2 without murmur, rub or gallop. ABDOMEN: Soft, nontender, nondistended, normoactive bowel sounds, no guarding, no rebound, no hepatosplenomegaly, no masses. EXTREMITIES: 2+ pulses, warm, well-perfused, no edema. NEUROLOGICAL: Cranial nerves II through XII grossly intact. Normal speech, gait not observed. PSYCH: Normal mood, normal affect. SKIN: Warm, dry, normal turgor, no rashes or lesions noted CBCD WBC 11.7 K/mm3 (4.0-10.0) H 04/17/19 05:35 RBC 4.32 M/mm3 (4.00-5.60) 04/17/19 05:35 Hgb 12.9 GM/dL (11.7-16.9) 04/17/19 05:35 Hct 37.2 % (35.4-49) 04/17/19 05:35 MCV 86.1 fl (80-96) 04/17/19 05:35 MCHC 34.8 g/dl (32.0-35.9) 04/17/19 05:35 RDW 13.3 % (11.9-15.9) 04/17/19 05:35 Plt Count 251 K/MM3 (134-434) 04/17/19 05:35 MPV 9.3 fl (7.5-11.1) 04/17/19 05:35 CMP Sodium 139 mmol/L (136-145) 04/17/19 05:35 Potassium 4.2 mmol/L (3.5-5.1) 04/17/19 05:35 Chloride 106 mmol/L (98-107) 04/17/19 05:35 Carbon Dioxide 30 mmol/L (21-32) 04/17/19 05:35 Anion Gap 3 MMOL/L (8-16) L 04/17/19 05:35 BUN 15.6 mg/dL (7-18) 04/17/19 05:35 Creatinine 0.8 mg/dL (0.55-1.3) 04/17/19 05:35 Random Glucose 93 mg/dL (74-106) 04/17/19 05:35 Calcium 8.8 mg/dL (8.5-10.1) 04/17/19 05:35 Current Medications Generic Name Dose Route Start Last Admin Trade Name Freq PRN Reason Stop Dose Admin Acetaminophen 1,000 mg 04/16/19 18:00 04/17/19 09:04 Ofirmev Injection - IVPB 04/19/19 17:59 1,000 mg Q8H MAXIMO Administration Acetaminophen 650 mg 04/20/19 02:00 Tylenol - PO Q6H MAXIMO Alprazolam 1 mg 04/16/19 22:00 Xanax PO HS PRN INSOMNIA Diphenhydramine HCl 25 mg 04/16/19 13:37 Benadryl Injection - IVPUSH ONCE PRN FOR ITCHING Gabapentin 300 mg 04/16/19 14:00 04/17/19 09:04 Neurontin - PO 300 mg QID MAXIMO Administration Lactated Ringer's 1,000 mls @ 125 mls/hr 04/16/19 13:45 04/17/19 04:23 Lactated Ringers Solution IV Not Given ASDIR MAXIMO Lamotrigine 400 mg 04/17/19 10:00 04/17/19 09:54 Lamictal - PO 400 mg DAILY [facility] Administration Naloxone HCl 0.4 mg 04/16/19 13:37 Narcan - IVPUSH ONCE PRN Sedation Non-Formulary Medication 40 mg 04/17/19 10:00 Dextroamphetamine/Amphetamine [Adderall 10 Mg Tablet] PO DAILY [facility] Non-Formulary Medication 70 mg 04/17/19 10:00 Lisdexamfetamine Dimesylate [Vyvanse] PO DAILY [facility] Ondansetron HCl 4 mg 04/16/19 13:37 Zofran Injection IVPUSH Q6H PRN NAUSEA AND/OR VOMITING Ondansetron HCl 4 mg 04/16/19 13:38 Zofran Injection IVPUSH Q6H PRN NAUSEA AND/OR VOMITING Oxycodone HCl 10 mg 04/16/19 22:30 Roxicodone - PO Q4H PRN PAIN LEVEL 1-5 Oxycodone HCl 40 mg 04/16/19 13:37 04/17/19 08:16 Roxicodone - PO 40 mg Q3H PRN Administration PAIN LEVEL 6-10 Home Medications Medication Instructions Recorded Alprazolam [Xanax] 1 mg PO PRN 04/16/19 Cyclobenzaprine HCl [Flexeril -] 10 mg PO DAILY 04/16/19 Dextroamphetamine/Amphetamine 40 mg PO DAILY 04/16/19 [Adderall 10 mg Tablet] Diazepam [Valium] 10 mg PO DAILY 04/16/19 Gabapentin [Neurontin] 300 mg PO QID 04/16/19 Lamotrigine [Lamictal -] 800 mg PO DAILY 04/16/19 Lisdexamfetamine Dimesylate 70 mg PO DAILY 04/16/19 [Vyvanse] Oxycodone HCl [Oxycontin] 10 mg PO PRN 04/16/19 Tadalafil [Cialis] 5 mg PO PRN 04/16/19 ASSESSMENT AND PLAN: Patient is a 43yo male with PMHx of asthma, ADD, Bipolar disorder who is POD #1 for L4-S1 posterior instrumented fusion by Dr Berger. Patient of # POD #[address] Berger for L4-L5, L5-S1 segmental instability & spondylosis. 2. L5-S1 spondylolisthesis (Grade 1 anterolisthesis). 3. Pseudomeningocele ~L5 1. Bilateral laminectomies & facetectomies L4, S1. 2. Revision bilateral laminectomies & facetectomies L5. 3. Posterior instrumentation L4, L5, S1. 4. Posterolateral arthrodesis L4-S1. 5. Bone autograft. 6. Bone allograft. 7. BMAC. 8. Paraspinal muscle block (exparel - 20mL, marcaine 0.25% - 20mL). 9. Intrathecal anesthetic/intradural injection - duramorph. 10. Complex wound closure (25cm). - Pain control: NO NSAID's; Oxycodone 10 mg PRN with pain scales. Ofirmev 1000 mg Q8H PRN - No bending, lifting (>5 lbs), or twisting for 9-12 months, pain management : Dr. Vladimir Wright - PT/OT/Rehab, OOB, Angy Mccray D/C oneal when ambulating -Ancef x 3 doses finished #Bipolar Disorder: Resume Lamictal 400 Daily DVT Px; SCd
--- NOTE | 2019-04-17 14:20 | PN ---
Progress Note (short form) - Note Progress Note: Surgery POD#1 1. L4-L5, L5-S1 Bilateral laminectomies & facetectomies L4, S1. 2. Revision bilateral laminectomies & facetectomies L5. 3. Posterior instrumentation L4, L5 , S1. 4. Posterolateral arthrodesis L4-S1. patient seen and examined at bedside complaining he is hungry and would like to eat. His pain is controlled and he has not been OOB yet. Vital Signs Temp 98.0 F 04/17/19 05:00 Pulse 81 04/17/19 12:00 Resp 16 04/17/19 12:00 BP 97/65 04/17/19 12:00 Pulse Ox 99 04/17/19 09:00 Intake & Output 04/16/19 04/17/19 04/17/19 23:59 11:59 23:59 Intake Total 1500 1160 Output Total 1830 2120 Balance -330 -960 Weight 196 lb 13.965 oz Intake: IV 1500 1160 Lactated Ringers Solution 1160 1,000 ml @ 125 mls/hr IV ASDIR MAXIMO Rx#: [id number] Output: Drainage 30 20 Medial Back 20 Urine 1800 2100 Brooks 2100 Other: Voiding Method Indwelling Catheter Indwelling Catheter Bowel Movement No Weight Measurement Method Built in Bedscale CBC, BMP 04/17/19 05:35 04/17/19 05:35 PE: A&Ox3, NAD Unlabored resp on RA Lumbar spine dressing c/d/i with iodoform dressing and hemavac drain in place. Surrounding tissue intact with no evidence of tracking erythema. collection or active d/c. B/L LE compartments soft supple and non-tender with +2 DP pulses and 5/5 dorsi/ plantar flexion. 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 -Chemical: None. -Incentive spirometry q15 min. -Regular diet -Brooks care; d/c when ambulating. -Post-op Ancef x 3 doses. -PT/OT/Rehab, OOB. -WBAT B/L LE. -No bending, lifting (>5 lbs), or twisting for 9-12 months. -Care per ICU & medical hospitalist teams. -f/u pain management rec's: Dr. Vladimir Wright (case discussed). -Discharge planning: f/u 7-10 days after rehab discharge at [facility] office; call for appointment; . Code(s): Z98.890 - OTHER SPECIFIED POSTPROCEDURAL STATES
[2019-04-17] MEDS ORDERED: oxyCODONE HCL 5 MG TABLET PO PRN (22:28)
[2019-04-17] MEDS ORDERED: ONDANSETRON 4 MG/2 ML VIAL IVPUSH PRN (22:28)
[2019-04-17] MEDS ORDERED: NALOXONE HCL 0.4 MG/ML VIAL IVPUSH PRN (22:28)
[2019-04-17] MEDS: ALPRAZolam 1 MG TABLET PO PRN (23:24)
[2019-04-18] MEDS: ACETAMINOPHEN 1000 MG/100 ML VIAL (NON FORMULARY) IVPB SCH ×5 (01:31→18:18)
[2019-04-18] MEDS: oxyCODONE HCL 5 MG TABLET PO PRN ×5 (03:37→23:31)
--- NOTE | 2019-04-18 08:35 | PN ---
Progress Note (short form) - Note Progress Note: ORTHOPAEDIC SPINE SURGERY POD #2 s/p L4-L5, L5-S1 Bilateral lamis & facetectomies L4, S1. 2. Revision bilateral laminectomies & facetectomies L5. 3. Posterior instrumentation L4, L5 , S1. 4. Posterolateral arthrodesis L4-S1. Per RN, patient not compliant. Not willing to get OOB. Demanding he get his home dose of kely medicatons Hasn't been OOB yet. Brooks cath in place. Tolerating PO diet. Denies n/v/f/c, CP, palpitations, sob or CARROLL. Denies motor or sensory deficits. Last Vital Signs Temp Pulse Resp BP Pulse Ox 101.2 F H 103 H 20 137/77 96 04/18/19 07:05 04/18/19 07:05 04/18/19 07:05 04/18/19 07:05 04/17/19 21:00 PE: A&Ox3, NAD Unlabored resp on RA Lumbar spine dressing c/d/i with iodoform dressing and hemavac drain in place. Surrounding tissue intact with no evidence of tracking erythema. collection or active d/c. B/L LE compartments soft supple and non-tender with +2 DP pulses and 5/5 dorsi/ plantar flexion. 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 -Chemical: None. -Incentive spirometry -Regular diet -Brooks care; d/c when ambulating. -PT/OT/Rehab, OOB. -WBAT B/L LE. -No bending, lifting (>5 lbs), or twisting for 9-12 months. -Hemovac dc'd on rounds -Pain Management --> Dr. Vladimir Wright -Discharge planning w/ f/u 7-10 days after discharge --> [facility] [place] office; call for appointment; . Code(s): Z98.890 - OTHER SPECIFIED POSTPROCEDURAL STATES
[2019-04-18 08:45] LABS: BASO % 0.4 % (0-2.0); EOS % 0.9 % (0-4.5); HEMATOCRIT 36.5 % (35.4-49); HEMOGLOBIN 12.6 GM/dL (11.7-16.9); LYMPH % 20.4 % (8-40); MCH 30.1 pg (25.7-33.7); MCHC 34.5 g/dl (32.0-35.9); MEAN CELL VOLUME 87.2 fl (80-96); MEAN PLT VOLUME 9.2 fl (7.5-11.1); MONO % 8.7 % (3.8-10.2); NEUT % 69.6 % (42.8-82.8); PLATELET COUNT 237 K/MM3 (134-434); RBC 4.18 M/mm3 (4.00-5.60); RDW 13.6 % (11.9-15.9); WHITE BLOOD COUNT 9.2 K/mm3 (4.0-10.0)
[2019-04-18 09:13] LABS: ALBUMIN 3.2 g/dl (3.4-5.0); BILIRUBIN,TOTAL 0.3 mg/dL (0.2-1); BLOOD UREA NITROGEN 11.2 mg/dL (7-18); CALCIUM 8.6 mg/dL (8.5-10.1); CREATININE 1.1 mg/dL (0.55-1.3); MAGNESIUM 2.4 mg/dL (1.8-2.4); PHOSPHOROUS 2.6 mg/dL (2.5-4.9); POTASSIUM 3.5 mmol/L (3.5-5.1); TOT PROT 5.8 g/dl (6.4-8.2)
[2019-04-18] MEDS: GABAPENTIN 300 MG CAPSULE (FP) PO SCH ×4 (09:35→21:41)
[2019-04-18] MEDS: lamoTRIgine 100 MG TABLET (FP) PO SCH (09:35)
[2019-04-18] MEDS ORDERED: PATIENT'S OWN MEDICATION (NON-FORMULARY) (Dextroamphetamine/Amphetamine [Adderall 10 Mg Ta PO SCH (10:00)
--- NOTE | 2019-04-18 15:51 | PN ---
Physical Exam: SUBJECTIVE: Patient seen and examined 43 y/o M, pmh of arachnoiditis, asthma, ADD, bipolar presents s/p L4-S1 posterior instrumented fusion POD #2. Pt spiked a fever overnight and was given tylenol IV, which relieved the fever. Pt is no longer febrile and has no c/o. He passed gas and has a no. Admits to chills and back pain but denies sob, chest pain, n/v/d, abdominal pain, neck pain. OBJECTIVE: Vital Signs Period Temp Pulse Resp BP Sys/Andrews Pulse Ox Last 24 Hr 98.1 F-101.2 F 89-103 10-20 106-139/54-82 96 GENERAL: The patient is awake, alert, and fully oriented, in no acute distress. EYES: PERRL, extraocular movements intact, ENT: oropharynx clear without exudates, moist mucous membranes. NECK: full range of motion, supple. LUNGS: Breath sounds equal, clear to auscultation bilaterally, no wheezes, no crackles, no accessory muscle use. HEART: Regular rate and rhythm, S1, S2 without murmur, rub or gallop. ABDOMEN: Soft, nontender, nondistended, normoactive bowel sounds, no guarding, EXTREMITIES: 2+ pulses, warm, well-perfused, no edema. NEUROLOGICAL: Cranial nerves II through XII grossly intact. Normal speech, Strength 4/5 UE and LE b/l. Sensation 5/5 UE and LE b/l. SKIN: Warm, dry, normal turgor, no rashes or lesions noted Laboratory Results - last 24 hr CBC,CMP WBC 9.2 K/mm3 (4.0-10.0) 04/18/19 08:05 RBC 4.18 M/mm3 (4.00-5.60) 04/18/19 08:05 Hgb 12.6 GM/dL (11.7-16.9) 04/18/19 08:05 Hct 36.5 % (35.4-49) 04/18/19 08:05 MCV 87.2 fl (80-96) 04/18/19 08:05 MCH 30.1 pg (25.7-33.7) 04/18/19 08:05 MCHC 34.5 g/dl (32.0-35.9) 04/18/19 08:05 RDW 13.6 % (11.9-15.9) 04/18/19 08:05 Plt Count 237 K/MM3 (134-434) 04/18/19 08:05 MPV 9.2 fl (7.5-11.1) 04/18/19 08:05 Absolute Neuts (auto) 6.4 K/mm3 (1.5-8.0) 04/18/19 08:05 Neutrophils % 69.6 % (42.8-82.8) 04/18/19 08:05 Lymphocytes % 20.4 % (8-40) 04/18/19 08:05 Monocytes % 8.7 % (3.8-10.2) 04/18/19 08:05 Eosinophils % 0.9 % (0-4.5) 04/18/19 08:05 Basophils % 0.4 % (0-2.0) 04/18/19 08:05 Nucleated RBC % 0 % (0-0) 04/18/19 08:05 Sodium 138 mmol/L (136-145) 04/18/19 08:05 Potassium 3.5 mmol/L (3.5-5.1) 04/18/19 08:05 Chloride 103 mmol/L (98-107) 04/18/19 08:05 Carbon Dioxide 27 mmol/L (21-32) 04/18/19 08:05 Anion Gap 7 MMOL/L (8-16) L 04/18/19 08:05 BUN 11.2 mg/dL (7-18) 04/18/19 08:05 Creatinine 1.1 mg/dL (0.55-1.3) 04/18/19 08:05 Est GFR (CKD-EPI)AfAm 95.46 04/18/19 08:05 Est GFR (CKD-EPI)NonAf 82.36 04/18/19 08:05 Random Glucose 131 mg/dL (74-106) H 04/18/19 08:05 Calcium 8.6 mg/dL (8.5-10.1) 04/18/19 08:05 Phosphorus 2.6 mg/dL (2.5-4.9) 04/18/19 08:05 Magnesium 2.4 mg/dL (1.8-2.4) 04/18/19 08:05 Total Bilirubin 0.3 mg/dL (0.2-1) 04/18/19 08:05 AST 57 U/L (15-37) H 04/18/19 08:05 ALT 61 U/L (13-61) 04/18/19 08:05 Alkaline Phosphatase 93 U/L (45-117) 04/18/19 08:05 Total Protein 5.8 g/dl (6.4-8.2) L 04/18/19 08:05 Albumin 3.2 g/dl (3.4-5.0) L 04/18/19 08:05 Active Medications Current Medications Acetaminophen (Tylenol -) 650 mg PO Q6H [facility] Acetaminophen (Ofirmev Injection -) 1,000 mg IVPB Q8H [facility] Stop: 04/19/19 17:59 Last Admin: 04/18/19 14:32 Dose: 1,000 mg Alprazolam (Xanax) 1 mg PO HS PRN PRN Reason: INSOMNIA Last Admin: 04/17/19 23:24 Dose: 1 mg Gabapentin (Neurontin -) 300 mg PO QID [facility] Last Admin: 04/18/19 14:32 Dose: 300 mg Lamotrigine (Lamictal -) 400 mg PO DAILY [facility] Last Admin: 04/18/19 09:35 Dose: 400 mg Non-Formulary Medication (Dextroamphetamine/Amphetamine [Adderall 10 Mg Tablet] ) 40 mg PO DAILY [facility] Non-Formulary Medication (Lisdexamfetamine Dimesylate [Vyvanse]) 70 mg PO DAILY [facility] Ondansetron HCl (Zofran Injection) 4 mg IVPUSH Q6H PRN PRN Reason: NAUSEA AND/OR VOMITING Oxycodone HCl (Roxicodone -) 10 mg PO Q4H PRN PRN Reason: PAIN LEVEL 1-5 Oxycodone HCl (Roxicodone -) 40 mg PO Q3H PRN PRN Reason: PAIN LEVEL 6-10 Last Admin: 04/18/19 12:35 Dose: 40 mg Home Medications Medication Instructions Recorded Alprazolam [Xanax] 1 mg PO PRN 04/16/19 Cyclobenzaprine HCl [Flexeril -] 10 mg PO DAILY 04/16/19 Dextroamphetamine/Amphetamine 40 mg PO DAILY 04/16/19 [Adderall 10 mg Tablet] Diazepam [Valium] 10 mg PO DAILY 04/16/19 Gabapentin [Neurontin] 300 mg PO QID 04/16/19 Lamotrigine [Lamictal -] 800 mg PO DAILY 04/16/19 Lisdexamfetamine Dimesylate 70 mg PO DAILY 04/16/19 [Vyvanse] Oxycodone HCl [Oxycontin] 10 mg PO PRN 04/16/19 Tadalafil [Cialis] 5 mg PO PRN 04/16/19 ASSESSMENT/PLAN: 43 y/o M, pmh of arachnoiditis, asthma, ADD, bipolar presents s/p L4-S1 posterior instrumented fusion POD #2 is admitted for fever #Fever Likely 2/2 to infectious or post op fever CXR- no acute pathology, White count normal Monitor for now IV tylenol #s/p L4-S1 posterior instrumented fusion POD #1 NO NSAID's; patient had intra-op TLIP block w/Exparel Pain management with Oxycodone 10 mg PRN with pain scales. Ofirmev 1000 mg Q8H PRN Avoid bending, lifting (>5 lbs), or twisting for 9-12 months. PT- pt only walked a few steps, will need to re-evaluate Incentive [place] D/C no when ambulating #Bipolar Disorder Resume Lamictal 400 Daily #ADD Will verify home medication when his sister brings it in- f/u in am #FEN Monitor and replete lytes as needed Regular diet #DVT ppx: SCDs #Dispo: f/u w/ PT tomorrow, monitor fever Visit type - Emergency Visit Emergency Visit: Yes ED Registration Date: 04/16/19 Care time: The patient presented to the Emergency Department on the above date and was hospitalized for further evaluation of their emergent condition. - New Patient This patient is new to me today: Yes Date on this admission: 04/20/19 - Critical Care Critical Care patient: No - Discharge Referral Referred to [facility] Med P.C.: No ATTENDING PHYSICIAN STATEMENT I saw and evaluated the patient. I reviewed the resident's note and discussed the case with the resident. I agree with the resident's findings and plan as documented. SUBJECTIVE: OBJECTIVE: ASSESSMENT AND PLAN:
--- NOTE | 2019-04-18 18:44 | PN ---
Progress Note (short form) - Note Progress Note: 43M s/p L4-S1 posterior instrumented fusion POD #2. Pain well controlled. No acute events overnight. Pt. denies overnight history of headaches, chest pain, shortness of breath, nausea, vomiting, chills, & sweats. (+) Brooks; (-) Flatus; (-) BM. All labs and vitals reviewed. PE: AAO x 3, NAD. T/L-Spine: Incision, dressing C/D/I. B/L LE M: L2-S1 intact, at baseline. B/L LE S: L2-S1 2/2. 43M s/p L4-S1 posterior instrumented fusion POD #2. -Admit to ICU post-op. -Pain control: NO NSAID's. -DVT PPx: -Mechanical only: GLORY's, SCD's. -Chemical: None. -Incentive spirometry q15 min. -NPO until flatus. -Brooks care; d/c when ambulating. -PT/OT/Rehab, OOB. -WBAT B/L LE. -No bending, lifting (>5 lbs), or twisting for 9-12 months. -Care per medical hospitalist teams. -f/u pain management rec's: Dr. Vladimir Wright (case discussed). -Discharge planning: f/u 7-10 days after rehab discharge at [facility] office; call for appointment; . -Will follow. Dhaval Berger MD (Orthopaedic Surgery).
--- NOTE | 2019-04-18 19:46 | PN ---
Teaching Attending Note Name of Resident: Lakesha Steele ATTENDING PHYSICIAN STATEMENT I saw and evaluated the patient. I reviewed the resident's note and discussed the case with the resident. I agree with the resident's findings and plan as documented. SUBJECTIVE: No fever or chills. complains of back pain . wants more pain meds .fever last night OBJECTIVE: NAD, lethargic, falls asleep during encounter, slurred speech . CV: RRR Lungs: CTAB Abd: soft, NT, ND , NL BS Ext : No edema or erythema Neuro of LE : does not flex hips due to pain in back. knee flexion and extension 5/5 b/l. ankle dorsiflexion /plantar flexion 5/5 . reflexes 2+knee jerk b/l ASSESSMENT AND PLAN: 43 y/o man with h/o lower back pain , Bipolar, ADD, asthma, who presented for L spine sx 1- S/P L spine sx - too lethargic from pain meds - decrease the dose of 40 mg q3 h to 20 mg q 4 h - dc 10 mg of oxy q 4 h - pain management has not seen patient yet - bowel regimen - avoid NSAIDs - No chemical DVT px - order SCds - fever: no clear source , cxray obtained. blood cx sent . ID consulted. 2- h/o ADD : sister brought the meds. will administer 3- Elevated bP , due to pain ,. monitor . will treat if needed HLOC
[2019-04-18] MEDS: POLYETHYLENE GLYCOL 3350 119 GM BTL PO SCH (19:55)
[2019-04-18] MEDS: LISDEXAMFETAMINE DIMESYLATE 70 MG PO SCH (19:55)
[2019-04-18] MEDS: ALPRAZolam 1 MG TABLET PO PRN (21:41)
[2019-04-18] MEDS: SENNOSIDES/DOCUSATE COMBO (SENNA PLUS) TABLET (UD) PO SCH (21:41)
[2019-04-19] MEDS: ACETAMINOPHEN 1000 MG/100 ML VIAL (NON FORMULARY) IVPB SCH ×2 (01:42→11:12)
[2019-04-19] MEDS: oxyCODONE HCL 5 MG TABLET PO PRN ×4 (03:25→20:56)
[2019-04-19 08:09] LABS: HEMATOCRIT 36.9 % (35.4-49); HEMOGLOBIN 12.7 GM/dL (11.7-16.9); MCH 29.8 pg (25.7-33.7); MCHC 34.4 g/dl (32.0-35.9); MEAN CELL VOLUME 86.7 fl (80-96); MEAN PLT VOLUME 9.2 fl (7.5-11.1); PLATELET COUNT 235 K/MM3 (134-434); RBC 4.25 M/mm3 (4.00-5.60); RDW 13.2 % (11.9-15.9)
[2019-04-19] MEDS ORDERED: diazePAM 5 MG TABLET PO PRN (08:14)
[2019-04-19 08:49] LABS: BILIRUBIN,TOTAL 0.5 mg/dL (0.2-1); BLOOD UREA NITROGEN 7.7 mg/dL (7-18); CALCIUM 8.9 mg/dL (8.5-10.1); CREATININE 0.9 mg/dL (0.55-1.3); MAGNESIUM 2.2 mg/dL (1.8-2.4); PHOSPHOROUS 2.2 mg/dL (2.5-4.9); POTASSIUM 3.6 mmol/L (3.5-5.1)
[2019-04-19] MEDS: LISDEXAMFETAMINE DIMESYLATE 70 MG PO SCH (10:05)
[2019-04-19] MEDS: GABAPENTIN 300 MG CAPSULE (FP) PO SCH ×4 (10:44→21:32)
[2019-04-19] MEDS: lamoTRIgine 100 MG TABLET (FP) PO SCH (10:45)
[2019-04-19] MEDS: SENNOSIDES/DOCUSATE COMBO (SENNA PLUS) TABLET (UD) PO SCH ×2 (10:45→21:31)
[2019-04-19] MEDS: POLYETHYLENE GLYCOL 3350 119 GM BTL PO SCH ×2 (10:46→11:24)
--- NOTE | 2019-04-19 11:08 | PN ---
Progress Note (short form) - Note Progress Note: 43M s/p L4-S1 posterior instrumented fusion POD #2. Pt. received high dose pain medication overnight and developed incoherent speach , somnolence, and decreased respiratory drive. Pt. denies overnight history of headaches, chest pain, shortness of breath, nausea, vomiting, chills, & sweats. (+) Voiding; (+) Flatus; (-) BM. (+) Walked in room. All labs and vitals reviewed. PE: AAO x 3, NAD. L-Spine: Incision, dressing C/D/I. B/L LE M: L2-S1 5/5. L LE S: L2-S1 2/2. R LE S: L2-L4 2/2. L5, S1 1/2. 43M s/p L4-S1 posterior instrumented fusion POD #2. -Pain control: Oxycodone 10mg PO q6h PRN pain (baseline analgesia) + Oxycontin 10mg PO BID x 3 days; NO NSAID's. -DVT PPx: -Mechanical only: GLORY's, SCD's. -Chemical: None. -Incentive spirometry q15 min. -Advance diet as tolerated. -PT/OT/Rehab, OOB. -WBAT B/L LE. -No bending, lifting (>5 lbs), or twisting for 9-12 months. -Care per medical hospitalist team. -f/u pain management rec's: Dr. Vladimir Wright (case discussed). -Discharge planning: f/u 7-10 days after rehab discharge at [facility] office; call for appointment; . -Will follow. Reji Berger MD (Orthopaedic Surgery).
[2019-04-19] MEDS: oxyCODONE HCL 10 MG SUSTAINED ACTING TABLET PO SCH ×2 (11:11→21:32)
--- NOTE | 2019-04-19 11:54 | PN ---
Teaching Attending Note Name of Resident: Sha Beebe ATTENDING PHYSICIAN STATEMENT I saw and evaluated the patient. I reviewed the resident's note and discussed the case with the resident. I agree with the resident's findings and plan as documented. SUBJECTIVE: No fever or chills. Claims he is in agony, despite being in bed comfortable, and wants 40 mg of oxycodone q 3 hrs, in addition to 10 mg q 6 hours. He refused to bring his Adderal from home and only felt he needed Vyvanse. OBJECTIVE: Exam not done due to patient condition . Dr. Berger took over for exam ASSESSMENT AND PLAN: 43 y/o man with h/o lower back pain , Bipolar, ADD, asthma, who presented for L spine sx 1- S/P L spine sx - case was d/w patient and dr. Berger at bedside. due to oversedation with the pain regimen he was on yesterday morning. We agreed to place him on oxycontin 10 mg BID , for a short period of time ( 3 days probably), in addition to his home dose Oxycodone 10 q 6 PRN . - bowel regimen - avoid NSAIDs - No chemical DVT px - SCds - fever: no clear source , did not recur . Dr. Morgan paged regarding REcs. ( still pending ) 2- h/o ADD : Vyvanse dose was confirmed and brought by sister. patient does not feel he needs Aderral , and declined bringing it. 3- Elevated bP , improved,. pain and anxiety contributed to elevated numbers Dispo: if no ID work up is needed, then patient to be dc in am after PT
--- NOTE | 2019-04-19 17:33 | PN ---
Physical Exam: SUBJECTIVE: Patient seen and examined at bedside. Endorses excruciating pain. No fevers overnight. OBJECTIVE: Vital Signs Period Temp Pulse Resp BP Sys/Andrews Pulse Ox Last 24 Hr 98.0 F-99.6 F 91-111 18-20 120-154/61-101 96 Exam not performed as pt refused due to agonizing pain. Agreed to have physical exam performed by Dr Berger. Laboratory Results - last 24 hr 04/19/19 04/19/19 07:25 07:25 WBC 10.0 RBC 4.25 Hgb 12.7 Hct 36.9 MCV 86.7 MCH 29.8 MCHC 34.4 RDW 13.2 Plt Count 235 MPV 9.2 Sodium 140 Potassium 3.6 Chloride 104 Carbon Dioxide 30 Anion Gap 6 L BUN 7.7 Creatinine 0.9 Est GFR (CKD-EPI)AfAm 121.67 Est GFR (CKD-EPI)NonAf 104.98 Random Glucose 137 H Calcium 8.9 Phosphorus 2.2 L Magnesium 2.2 Total Bilirubin 0.5 AST 51 H ALT 55 Alkaline Phosphatase 87 Total Protein 6.0 L Albumin 3.0 L Active Medications Generic Name Dose Route Start Last Admin Trade Name Freq PRN Reason Stop Dose Admin Acetaminophen 650 mg 04/20/19 02:00 Tylenol - PO Q6H MAXIMO Acetaminophen 1,000 mg 04/18/19 02:00 04/19/19 11:12 Ofirmev Injection - IVPB 04/19/19 17:59 Not Given Q8H MAXIMO Alprazolam 1 mg 04/17/19 22:28 04/18/19 21:41 Xanax PO 1 mg HS PRN Administration INSOMNIA Diazepam 10 mg 04/19/19 08:14 Valium - PO DAILY PRN ANXIETY Gabapentin 300 mg 04/18/19 10:00 04/19/19 14:31 Neurontin - PO 300 mg QID MAXIMO Administration Lamotrigine 400 mg 04/18/19 10:00 04/19/19 10:45 Lamictal - PO 400 mg DAILY MAXIMO Administration Non-Formulary Medication 40 mg 04/18/19 10:00 Dextroamphetamine/Amphetamine [Adderall 10 Mg Tablet] PO DAILY MAXIMO Non-Formulary Medication 70 mg 04/18/19 10:00 04/19/19 10:05 Lisdexamfetamine Dimesylate [Vyvanse] PO 70 mg DAILY MAXIMO Administration Ondansetron HCl 4 mg 04/17/19 22:28 Zofran Injection IVPUSH Q6H PRN NAUSEA AND/OR VOMITING Oxycodone HCl 10 mg 04/19/19 10:28 04/19/19 14:31 Roxicodone - PO 10 mg Q6H PRN Administration PAIN LEVEL 6-10 Oxycodone HCl 10 mg 04/19/19 10:30 04/19/19 11:11 Oxycontin - PO 10 mg BID MAXIMO Administration Polyethylene Glycol 17 gm 04/18/19 20:00 04/19/19 11:24 Miralax (For Daily Use) - PO 17 gm DAILY MAXIMO Administration Senna/Docusate Sodium 1 tablet 04/18/19 22:00 04/19/19 10:45 Pericolace - PO 1 tablet BID MAXIMO Administration ASSESSMENT/PLAN: 43 y/o M, pmh of arachnoiditis, asthma, ADD, bipolar presents s/p L4-S1 posterior instrumented fusion POD #3 is admitted for fever #s/p L4-S1 posterior instrumented fusion POD #3 NO NSAID's; patient had intra-op TLIP block w/Exparel Pain management with Oxycodone 10 mg Q6H PRN with pain scales. Oxycontin 10 mg PO BID MAXIMO Ofirmev 1000 mg Q8H PRN Avoid bending, lifting (>5 lbs), or twisting for 9-12 months. PT- pt only walked a few steps, will need to re-evaluate Incentive [place] D/C no when ambulating #Bipolar Disorder Resume Lamictal 400 Daily #ADD -Vyvanse #FEN Monitor and replete lytes as needed Regular diet #DVT ppx: SCDs #Dispo: f/u w/ PT tomorrow, tentative D/C Visit type - Emergency Visit Emergency Visit: Yes ED Registration Date: 04/16/19 Care time: The patient presented to the Emergency Department on the above date and was hospitalized for further evaluation of their emergent condition. - New Patient This patient is new to me today: No - Critical Care Critical Care patient: No - Discharge Referral Referred to [facility] Med P.C.: No ATTENDING PHYSICIAN STATEMENT I saw and evaluated the patient. I reviewed the resident's note and discussed the case with the resident. I agree with the resident's findings and plan as documented. SUBJECTIVE: OBJECTIVE: ASSESSMENT AND PLAN:
[2019-04-19] MEDS ORDERED: ACETAMINOPHEN 325 MG TABLET (FP) PO SCH (18:00)
[2019-04-20] MEDS ORDERED: ACETAMINOPHEN 325 MG TABLET (FP) PO SCH (02:00)
[2019-04-20] MEDS: ACETAMINOPHEN 325 MG TABLET (FP) PO SCH ×5 (03:12→14:36)
[2019-04-20] MEDS: oxyCODONE HCL 5 MG TABLET PO PRN ×2 (03:13→05:05)
[2019-04-20] MEDS ORDERED: PT OWN MED DRAWER 7, Y5N ONE ×2 (08:39→10:23)
[2019-04-20 08:40] LABS: HEMATOCRIT 37.7 % (35.4-49); HEMOGLOBIN 13.1 GM/dL (11.7-16.9); MCH 30.2 pg (25.7-33.7); MCHC 34.7 g/dl (32.0-35.9); MEAN CELL VOLUME 86.9 fl (80-96); MEAN PLT VOLUME 9.4 fl (7.5-11.1); PLATELET COUNT 305 K/MM3 (134-434); RBC 4.34 M/mm3 (4.00-5.60); RDW 13.2 % (11.9-15.9); WHITE BLOOD COUNT 8.5 K/mm3 (4.0-10.0)
[2019-04-20 08:56] LABS: BLOOD UREA NITROGEN 8.8 mg/dL (7-18); CALCIUM 8.7 mg/dL (8.5-10.1); CREATININE 0.9 mg/dL (0.55-1.3); MAGNESIUM 2.3 mg/dL (1.8-2.4); PHOSPHOROUS 3.4 mg/dL (2.5-4.9); POTASSIUM 3.7 mmol/L (3.5-5.1)
[2019-04-20] MEDS: LISDEXAMFETAMINE DIMESYLATE 70 MG PO SCH ×2 (08:56→08:59)
[2019-04-20] MEDS ORDERED: PATIENT'S OWN MEDICATION (NON-FORMULARY) (Dextroamphetamine/Amphetamine [Adderall 10 Mg Ta PO SCH (10:00)
[2019-04-20] MEDS: lamoTRIgine 100 MG TABLET (FP) PO SCH (10:24)
[2019-04-20] MEDS: POLYETHYLENE GLYCOL 3350 119 GM BTL PO SCH (10:25)
[2019-04-20] MEDS: GABAPENTIN 300 MG CAPSULE (FP) PO SCH ×3 (10:26→17:31)
[2019-04-20] MEDS: oxyCODONE HCL 10 MG SUSTAINED ACTING TABLET PO SCH (10:26)
[2019-04-20] MEDS: SENNOSIDES/DOCUSATE COMBO (SENNA PLUS) TABLET (UD) PO SCH (10:27)
--- NOTE | 2019-04-20 11:53 | PN ---
Progress Note (short form) - Note Progress Note: POD 4, s/p revision L4-S1 lami/facetectomies L4, S1/fusion Pt seen and examined. Reports he is doing "okay". Feels his pain medication is not lasting an entire 6hrs, requesting change. Has been oob ambulating in halls and to restroom. Voiding without issue, unhappy regarding PT trtmt. Very anxious about d/c, requesting "significant notice prior to being d/c'ed. Denies cp/sob, n/v/d. Passing flatus, no BM however feels like he has to go soon. Vital Signs Temp 98.2 F 04/20/19 05:00 Pulse 90 04/20/19 05:00 Resp 20 04/20/19 05:00 BP 135/75 04/20/19 05:00 Pulse Ox 96 04/18/19 21:00 Intake & Output 04/19/19 04/19/19 04/20/19 11:59 23:59 11:59 Intake Total 700 900 Output Total 1630 300 980 Balance -930 600 -980 Weight 195 lb 1.6 oz 193 lb 1 oz Intake: Oral 700 900 Output: Urine 1630 300 980 Void 1630 300 980 Other: Voiding Method Urinal Toilet # Unmeasured Voids Void 1 1 2 Bowel Movement No Weight Measurement Method Built in Bedscale Built in Bedscale CBC, BMP 04/20/19 07:37 04/20/19 07:37 Gen: awake, alert, nad Resp: Unlabored on RA Back: dressing c/d/i, no surrounding erythema or drainage noted Neuro: b/l le 5/5 dorsi/plantarflexion, 5/5 hip flex/ext A/P: 43 y/o M w/ PMHx arachnoiditis diagnosed s/p excision of schwannoma tumor at L4-5 level in 2004, asthma, ADD, Bipolar disorder, now POD 4, s/p revision L4 -S1 lami/facetectomies L4, S1/fusion afebrile, vss labs stable Neuro exam stable -Pain control as ordered, NO NSAID's -DVT PPx: -Mechanical only: GLORY's, SCD's. -Chemical: None. -Incentive spirometry -Regular diet -Monitor I&Os -PT/OT/Rehab, OOB. -WBAT B/L LE. -No bending, lifting (>5 lbs), or twisting for 9-12 months. -Cleared for d/c, pt reports he prefers outpt PT d/w attending Dr Mckinley
[2019-04-20] MEDS ORDERED: oxyCODONE HCL 5 MG TABLET PO PRN ×2 (11:55→11:56)
[2019-04-20 13:03] VITALS: TEMP 98.3
--- NOTE | 2019-04-20 13:34 | PN ---
Teaching Attending Note Name of Resident: Lakesha Steele ATTENDING PHYSICIAN STATEMENT I saw and evaluated the patient. I reviewed the resident's note and discussed the case with the resident. I agree with the resident's findings and plan as documented. SUBJECTIVE: No fever or chills. No MARTINEZ . No SOB . back pain is better . has numbness in RLE, but nothing new. No weakness. was able to ambulate to bathroom on his own. HE also walked with PT today and walked 200 feet. OBJECTIVE: NAD, calm and cooperative today CV; RRR. No MRG Lungs : CTAB Ext : No edema or erythema MS: a big dressing on mid and lower back. skin abrasion just above the upper boarder of the tape. no tenderness. Neuro of LE : strength 4/5 R hip flexion , 5/5 L hip flesion . 5/5 b/l knee flexion and extension , and b/l ankle dorsiflexion and plantar flexion Nl sensation to light touch . 2+ knee jerk reflexes b/l ASSESSMENT AND PLAN: 43 y/o man with h/o lower back pain , Bipolar, ADD, asthma, who presented for L spine sx 1- S/P L spine sx - cont current pain meds while here. at dc will have him continue with home regimen of oxycodone 10 mg Q6h. he has enough pills at home. - f/u with Dr. Berger on Tuesday - keep dressing dry and clean - no heavy lifting or bending - Home PT and VNS - case d/w Dr. Dhaval Berger who agrees with above - SPoke to therapist Lashanda. she feels patient is safe for home dc and does not need rehab. brenton prescibe a walker in case patient likes to use 2- h/o ADD : cont Vyvanse and adderral at home. 3- Elevated bP , due to pain. now completely normal dc home with VNS today. patient was informed yesterday that he is being discharged today. safe for home dc. f/u with Dr. Berger in few days( Tuesday) . will arrange fro home PT and VNS.
--- NOTE | 2019-04-20 16:56 | DS ---
Physical Exam: SUBJECTIVE: Patient seen and examined 43 y/o M, pmh of arachnoiditis, asthma, ADD, bipolar presents s/p L4-S1 posterior instrumented fusion. Pt had a fever on POD1 but was afebrile since and has no c/o. He passed gas and as walked with PT. Denies sob, chest pain, n/v /d, abdominal pain, neck pain. OBJECTIVE: Vital Signs Period Temp Pulse Resp BP Sys/Andrews Pulse Ox Last 24 Hr 97.9 F-99.6 F 88-101 18-20 107-147/60-88 PHYSICAL EXAM GENERAL: The patient is awake, alert, and fully oriented, in no acute distress. EYES: PERRL, extraocular movements intact, ENT: oropharynx clear without exudates, moist mucous membranes. NECK: full range of motion, supple. LUNGS: Breath sounds equal, clear to auscultation bilaterally, no wheezes, no crackles HEART: Regular rate and rhythm, S1, S2 without murmur, rub or gallop. ABDOMEN: Soft, nontender, nondistended, normoactive bowel sounds, no guarding, EXTREMITIES: 2+ pulses, warm, well-perfused, no edema. Back: Dressing is intact. No signs of discharge or drainage from wound. NEUROLOGICAL: Cranial nerves II through XII grossly intact. Normal speech, Strength 5/5 UE and LE b/l. Sensation 5/5 UE and LE b/l. SKIN: Warm, dry, normal turgor, no rashes or lesions noted LABS Laboratory Results - last 24 hr 04/20/19 04/20/19 07:37 07:37 WBC 8.5 RBC 4.34 Hgb 13.1 Hct 37.7 MCV 86.9 MCH 30.2 MCHC 34.7 RDW 13.2 Plt Count 305 D MPV 9.4 Sodium 137 Potassium 3.7 Chloride 102 Carbon Dioxide 30 Anion Gap 6 L BUN 8.8 Creatinine 0.9 Est GFR (CKD-EPI)AfAm 121.67 Est GFR (CKD-EPI)NonAf 104.98 Random Glucose 120 H Calcium 8.7 Phosphorus 3.4 Magnesium 2.3 Current Medications Acetaminophen (Tylenol -) 650 mg PO Q6H [facility]IMO Last Admin: 04/20/19 14:36 Dose: Not Given Alprazolam (Xanax) 1 mg PO HS PRN PRN Reason: INSOMNIA Last Admin: 04/18/19 21:41 Dose: 1 mg Diazepam (Valium -) 10 mg PO DAILY PRN PRN Reason: ANXIETY Gabapentin (Neurontin -) 300 mg PO QID [facility] Last Admin: 04/20/19 13:37 Dose: 300 mg Lamotrigine (Lamictal -) 400 mg PO DAILY [facility] Last Admin: 04/20/19 10:24 Dose: 400 mg Non-Formulary Medication (Lisdexamfetamine Dimesylate [Vyvanse]) 70 mg PO DAILY [facility] Last Admin: 04/20/19 08:59 Dose: 70 mg Non-Formulary Medication (Dextroamphetamine/Amphetamine [Adderall 10 Mg Tablet] ) 10 mg PO QID [facility] Ondansetron HCl (Zofran Injection) 4 mg IVPUSH Q6H PRN PRN Reason: NAUSEA AND/OR VOMITING Oxycodone HCl (Oxycontin -) 10 mg PO BID [facility] Last Admin: 04/20/19 10:26 Dose: 10 mg Oxycodone HCl (Roxicodone -) 5 mg PO Q4H PRN PRN Reason: PAIN LEVEL 1-5 Last Admin: 04/20/19 13:39 Dose: 5 mg Oxycodone HCl (Roxicodone -) 10 mg PO Q4H PRN PRN Reason: PAIN LEVEL 6-10 Polyethylene Glycol (Miralax (For Daily Use) -) 17 gm PO DAILY [facility] Last Admin: 04/20/19 10:25 Dose: 17 gm Senna/Docusate Sodium (Pericolace -) 1 tablet PO BID [facility] Last Admin: 04/20/19 10:27 Dose: 1 tablet Home Medications Medication Instructions Recorded Alprazolam [Xanax] 1 mg PO PRN PRN 04/16/19 Dextroamphetamine/Amphetamine 10 mg PO QID 04/16/19 [Adderall 10 mg Tablet] Diazepam [Valium] 10 mg PO DAILY 04/16/19 Gabapentin [Neurontin] 300 mg PO QID 04/16/19 Lamotrigine [LaMICtal -] 800 mg PO DAILY 04/16/19 Lisdexamfetamine Dimesylate 70 mg PO DAILY 04/16/19 [Vyvanse] Tadalafil [Cialis] 5 mg PO PRN 04/16/19 Oxycodone HCl 10 mg PO Q6H PRN 04/20/19 Sennosides/Docusate Sodium 1 tablet PO BID #30 tablet 04/20/19 [Pericolace -] Walker [Ultra-Light Rollator] 1 each [facility] DAILY #1 each 04/20/19 Microbiology 04/18/19 10:15 Blood - Peripheral Venous Blood Culture - Preliminary NO GROWTH OBTAINED AFTER 48 HOURS, INCUBATION TO CONTINUE FOR 3 DAYS. 04/18/19 10:05 Blood - Peripheral Venous Blood Culture - Preliminary NO GROWTH OBTAINED AFTER 48 HOURS, INCUBATION TO CONTINUE FOR 3 DAYS. HOSPITAL COURSE: Date of Admission:04/16/19 43 y/o M, pmh of arachnoiditis, asthma, ADD, bipolar presents s/p L4-S1 posterior instrumented fusion POD #2 is admitted for fever. Pt spiked a fever of 102 overnight on his POD1. However, it resolved after a course of IV tylenol. He did not spike any fevers since. White count and CXR were normal. Therefore, the fever was consider likely reactive. Pt was given ancef 3 doses s/ p surgery. Pt began recovering well and began to ambulate today. He passed gas and was discharged as per recommendation from surgery. CXR- no acute pathology X ray spine 04/20: normal lordosis, paraspinal and prevertebral soft tissues appear intact. #Fever Likely 2/2 to infectious or post op fever Monitor for now IV tylenol #s/p L4-S1 posterior instrumented fusion POD #1 NO NSAID's; patient had intra-op TLIP block w/Exparel Pain management with Oxycodone 10 mg PRN with pain scales. Ofirmev 1000 mg Q8H PRN Avoid bending, lifting (>5 lbs), or twisting for 9-12 months. PT- pt walked [facility] [place] Date of Discharge: 04/20/19 Minutes to complete discharge: 35 <Kaveh Linares - Last Filed: 04/20/19 16:56> Discharge Summary Problems reviewed: Yes Reason For Visit: SPINAL STENOSIS - Home Medications Comprehensive Discharge Medication List: Ambulatory Orders Alprazolam [Xanax] 1 mg PO PRN PRN 04/16/19 Dextroamphetamine/Amphetamine [Adderall 10 mg Tablet] 10 mg PO QID 04/16/19 Diazepam [Valium] 10 mg PO DAILY 04/16/19 Gabapentin [Neurontin] 300 mg PO QID 04/16/19 Lamotrigine [LaMICtal -] 800 mg PO DAILY 04/16/19 Lisdexamfetamine Dimesylate [Vyvanse] 70 mg PO DAILY 04/16/19 Tadalafil [Cialis] 5 mg PO PRN 04/16/19 Oxycodone HCl 10 mg PO Q6H PRN 04/20/19 Sennosides/Docusate Sodium [Pericolace -] 1 tablet PO BID #30 tablet 04/20/19 Walker [Ultra-Light Rollator] 1 each [facility] DAILY #1 each 04/20/19 <Kaveh Linares - Last Filed: 04/20/19 16:56> <Tiara Harris - Last Filed: 04/21/19 17:46> Hospital Course: Correction to resident's dc summary. Please disregard this part of the hospital course ( #Fever Likely 2/2 to infectious or post op fever Monitor for now IV tylenol #s/p L4-S1 posterior instrumented fusion POD #1 NO NSAID's; patient had intra-op TLIP block w/Exparel Pain management with Oxycodone 10 mg PRN with pain scales. Ofirmev 1000 mg Q8H PRN Avoid bending, lifting (>5 lbs), or twisting for 9-12 months. PT- pt walked [facility] [place]) In addition : Please note that ID was consulted due to the post op fever that ddi not recur. ID recommended No intervention due to the unlikely infection. thepatient was not sent on any pain meds prescriptions. as he had oxycodone 10 mg QID at home , prescribed by Dr. Berger previously as out pt. Condition: Improved - Instructions Referrals: Jimmy Hope MD [Staff Physician] - Dhaval Berger MD [Staff Physician] - 04/24/19 Disposition: VNS/HOME HEALTH CARE This patient is new to me today: Yes Date on this admission: 04/20/19 Emergency Visit: Yes ED Registration Date: 04/16/19 Care time: The patient presented to the Emergency Department on the above date and was hospitalized for further evaluation of their emergent condition. Critical Care patient: No - Discharge Referral Referred to [facility] No <Kaveh Linares - Last Filed: 04/20/19 16:56> ATTENDING PHYSICIAN STATEMENT I saw and evaluated the patient. I reviewed the resident's note and discussed the case with the resident. I agree with the resident's findings and plan as documented. SUBJECTIVE: OBJECTIVE: ASSESSMENT AND PLAN: <Kaveh Linares - Last Filed: 04/20/19 16:56> ATTENDING PHYSICIAN STATEMENT I saw and evaluated the patient. I reviewed the resident's note and discussed the case with the resident. I agree with the resident's findings and plan as documented. SUBJECTIVE: OBJECTIVE: ASSESSMENT AND PLAN: <Tiara Harris - Last Filed: 04/21/19 17:46>
--- NOTE | 2019-04-20 17:14 | PN ---
Progress Note (short form) - Note Progress Note: Feeling well Anxious about recovery Apyrexial Wound Dry Neuro At baseline Original pain gone. Abd Soft distended Passing Flatus Assess Doing well PLAN D/C home today Pain mx PT to start in 3 months Laxatives for home See in office on Tuesday
[2019-04-20 17:41] VITALS: BP 123/77; PULSE 99
== END 2019-04-20 18:50 | disposition home health service (06) | DRG 455 ==
LOC: JSAMEDAYSX 08:00 → JICU 21:06 → J8W 04-17 22:10
PROVIDERS: ADMIT Orthopaedic Surgery Orthopaedic Surgery of the Spine; ATTEND Internal Medicine
PROC: 0SG0071 Fusion of Lumbar Vertebral Joint with Autologous Tissue Substitute, Posterior Approach, Posterior Column, Open Approach (ICD-10-PCS; 2019-04-16)
PROC: 0SG30AJ Fusion of Lumbosacral Joint with Interbody Fusion Device, Posterior Approach, Anterior Column, Open Approach (ICD-10-PCS; 2019-04-16)
PROC: 0SG3071 Fusion of Lumbosacral Joint with Autologous Tissue Substitute, Posterior Approach, Posterior Column, Open Approach (ICD-10-PCS; 2019-04-16)
PROC: 00NY0ZZ Release Lumbar Spinal Cord, Open Approach (ICD-10-PCS; 2019-04-16)
PROC: 07DR0ZZ Extraction of Iliac Bone Marrow, Open Approach (ICD-10-PCS; 2019-04-16)
PROC: 4A11X4G Monitoring of Peripheral Nervous Electrical Activity, Intraoperative, External Approach (ICD-10-PCS; 2019-04-16)
PROC: 0SG00AJ Fusion of Lumbar Vertebral Joint with Interbody Fusion Device, Posterior Approach, Anterior Column, Open Approach (ICD-10-PCS; principal; 2019-04-16 08:00)
DX: M43.17 Spondylolisthesis, lumbosacral region (principal); M47.897 Other spondylosis, lumbosacral region; G96.19 Other disorders of meninges, not elsewhere classified; M47.896 Other spondylosis, lumbar region; F31.9 Bipolar disorder, unspecified; J45.909 Unspecified asthma, uncomplicated; F90.1 Attention-deficit hyperactivity disorder, predominantly hyperactive type; R50.82 Postprocedural fever
CPT/HCPCS: 36415; 71045-TC-FY; 72100-TC-FY; 76000-TC-FY; 80048; 80053; 83735; 84100; 85025; 85027; 86850; 86900; 86901; 87040; 94760; 97116-GP; 97162-GP; J0131